=== PATIENT | male | born 1965 | race Caucasian/White ===

== ENCOUNTER 2023-02-21 14:06 | Outpatient (REF) | payer MEDICARE, MEDICAID, SELFPAY ==
--- NOTE | ~2023-02-21 | XR_ITS ---
EXAMINATION: XR LUMBAR SPINE XR SACROILIAC JOINTS CLINICAL INFORMATION: Ankylosing spondylitis COMPARISON: None TECHNIQUE: The lumbar spine is imaged in 5 views: AP, lateral, bilateral oblique, and lateral view coned to lumbosacral junction. The sacroiliac joints are imaged in 4 views. FINDINGS: Lumbar spine: There is normal lumbar segmentation with 5 lumbar vertebrae there is normal lumbar lordosis. Levocurvature mid lumbar spine is present. There is no destructive process, ankylosis, or erosive changes. There are degenerative disc changes greatest at L2-L3 with vacuum disc, endplate sclerosis, and osteophytes. There are also degenerative disc changes at L1-L2 and L3-L4. There is no definite spondylolysis. No spondylolisthesis. Sacroiliac joints: The sacrum shows no fracture or destructive process. There is no SI joint ankylosis or subchondral sclerosis. There are mild SI joint degenerative changes. Pubis unremarkable. There are surgical clips right lower quadrant abdomen. XR/XR sacroiliac joint min 3V IMPRESSION: -Levocurvature lumbar spine with degenerative disc changes, greatest at L2-L3. -Mild degenerative changes SI joints. -No ankylosis SI joints or lumbar spine.
--- NOTE | ~2023-02-21 | XR_ITS ---
EXAMINATION: XR LUMBAR SPINE XR SACROILIAC JOINTS CLINICAL INFORMATION: Ankylosing spondylitis COMPARISON: None TECHNIQUE: The lumbar spine is imaged in 5 views: AP, lateral, bilateral oblique, and lateral view coned to lumbosacral junction. The sacroiliac joints are imaged in 4 views. FINDINGS: Lumbar spine: There is normal lumbar segmentation with 5 lumbar vertebrae there is normal lumbar lordosis. Levocurvature mid lumbar spine is present. There is no destructive process, ankylosis, or erosive changes. There are degenerative disc changes greatest at L2-L3 with vacuum disc, endplate sclerosis, and osteophytes. There are also degenerative disc changes at L1-L2 and L3-L4. There is no definite spondylolysis. No spondylolisthesis. Sacroiliac joints: The sacrum shows no fracture or destructive process. There is no SI joint ankylosis or subchondral sclerosis. There are mild SI joint degenerative changes. Pubis unremarkable. There are surgical clips right lower quadrant abdomen. XR/XR lumbar spine 4V min IMPRESSION: -Levocurvature lumbar spine with degenerative disc changes, greatest at L2-L3. -Mild degenerative changes SI joints. -No ankylosis SI joints or lumbar spine.
[2023-02-21 15:28] LABS: MANUAL DIFF FLAG NO
[2023-02-21 15:36] LABS: Basophils Absolute Auto 0.1 X10*3/uL (0.0-0.2); Basophils Percent Auto 1.6 % (0-2); Eosinophils Absolute Auto 0.6 X10*3/uL (0.0-0.4); Eosinophils Percent Auto 7.8 % (0-4); Hematocrit 42.4 % (42.0-52.0); Hemoglobin 14.5 g/dl (14.0-18.0); Imm Gran Abs Auto 0.02 X10*3/uL (0.00-0.03); Imm Gran Pct Auto 0.3 % (0.0-0.4); Lymphocytes Absolute Auto 2.5 X10*3/uL (1.2-4.9); Lymphocytes Percent Auto 32.8 % (20-40); Mean Corpuscular HGB Conc 34.2 g/dl (31.0-36.0); Mean Corpuscular Hemoglobin 31.3 pg (27.0-33.0); Mean Corpuscular Volume 91.4 fL (80.0-98.0); Mean Platelet Volume 11.7 fL (9.4-12.4); Monocytes Absolute Auto 0.9 X10*3/uL (0.1-1.2); Neutrophils Absolute Auto 3.6 x10*3/uL (2.0-8.3); Neutrophils Percent Auto 46.5 % (45-73); Platelet Count 242 X10*3/uL (160-400); Red Blood Count 4.64 X10*6/uL (4.60-5.80); Red Cell Distribution Width 13.2 % (11.0-16.0); White Blood Count 7.7 X10*3/uL (4.8-10.8)
[2023-02-21 15:55] LABS: Alanine Aminotransferase 17 U/L (0-40); Albumin Level 4.2 g/dL (3.5-5.0); Alkaline Phosphatase 73 U/L (39-117); Anion Gap 13 (12-20); Aspartate Amino Transferase 15 U/L (5-37); Bilirubin Total 0.6 mg/dL (0.0-1.0); Blood Urea Nitrogen 15 mg/dL (9-16); C Reactive Protein < 0.10 mg/dL (< or = 0.50); Calcium 9.4 mg/dL (8.4-10.2); Carbon Dioxide 28 mmol/L (22-29); Chloride 107 mmol/L (96-108); Estimated Glomerular Filt Rate > 60; Glucose Random 94 mg/dL (60-115); Potassium 4.8 mmol/L (3.3-5.1); Sodium 143 mmol/L (135-145); Total Protein 6.6 g/dL (6.5-8.0)
[2023-02-21 16:19] LABS: Erythrocyte Sedimentation Rate 2 MM/HR (0-15)
[2023-02-22 04:03] LABS: HBS Num1 142.71 mIU/mL (0-7.99); HBc Num1 0.19 S/CO (0.00-0.79); HBsAGNum1 0.31 S/CO (0.00-0.99); Hepatitis A Antibody IgM 0.13 Index (0-0.79); Hepatitis B Core Antibody Nonreactive (Nonreactive); Hepatitis B Surface Antigen Negative (Negative); ~HepC Num1 0.18 S/CO (0.00-0.79); ~Hepatitis A Antibody IgM Nonreactive (Nonreactive); ~Hepatitis B Surface Antibody REACTIVE (Nonreactive); ~Hepatitis C Antibody Nonreactive (Nonreactive)
[2023-02-24 23:08] LABS: Prot Elec - Albumin 4.3 g/dL (3.8-4.8); Prot Elec - Alpha1 0.2 g/dL (0.2-0.3); Prot Elec - Alpha2 0.7 g/dL (0.5-0.9); Prot Elec - Beta 1 0.4 g/dL (0.4-0.6); Prot Elec - Beta 2 0.3 g/dL (0.2-0.5); Prot Elec - Gamma 0.8 g/dL (0.8-1.7); Prot Elec - Total Protein 6.6 g/dL (6.1-8.1)
[2023-02-26 10:58] LABS: IgA 125 mg/dL (47-310); IgG 1016 mg/dL (600-1640); IgM 84 mg/dL (50-300)
[2023-02-26 14:11] LABS: TSpotTB Invalid (Negative)
[2023-02-27 20:58] LABS: HLA B27 Positive (Negative)
== END 2023-02-21 14:07 | disposition home or self-care (01) ==
LOC: HO.LAB 14:06
PROVIDERS: Visit Provider Student in an Organized Health Care Education/Training Program
DX: Z11.59 Encounter for screening for other viral diseases (principal); Z11.7 Encounter for testing for latent tuberculosis infection; M45.9 Ankylosing spondylitis of unspecified sites in spine; M47.819 Spondylosis without myelopathy or radiculopathy, site unspecified; Z72.89 Other problems related to lifestyle
CPT/HCPCS: 36415; 72110; 72202; 80053; 82784; 84165; 85025; 85652; 86140; 86334; 86481; 86704; 86706; 86709; 86803; 86812; 87340; 99202

== ENCOUNTER 2023-07-02 10:54 | Outpatient (AMB) | payer MEDICARE, MEDICAID, SELFPAY ==
--- NOTE | 2023-07-02 11:03 | MHC.OFFVIS ---
Intake Vital Signs 07/02/23 11:04 Height 5 ft 10 in Weight 232 lb 9.403 oz BMI 33.4 BP 118/74 Blood Pressure Location Rt brachial Position Sitting Pulse 44 L Pulse Source Pulse Oximeter Pulse Oximetry (%) 96 Oxygen Delivery Method Room Air Intake Visit Reasons: SpA Intake Note: Patient presents for follow up Allergies lamotrigine [From Lamictal] Adverse Reaction (Unknown, Verified 07/02/23 11:06) Rash Medication List - Last Reconciled 07/02/23 by Lucrecia Suarez MD atenolol 50 mg PO DAILY atorvastatin 40 mg PO DAILY baclofen 10 mg PO QID PRN bupropion HCl 200 mg PO BID cholecalciferol (vitamin D3) (D3-2000) 50 mcg PO DAILY citalopram 40 mg PO DAILY etodolac 300 mg PO BID leflunomide 20 mg orally Mon, Wed, Fri; pantoprazole 40 mg PO DAILY quetiapine 50 mg PO BEDTIME HPI HPI Comments History of Present Illness Details 58-year-old male with HLA B27 inflammatory spondyloarthropathy presents for follow-up. Continues to get lower back pain and stiffness, usually worse in the morning associated with 30 minutes of morning stiffness. Pain is also worse with sitting down for long periods of time. Occasionally it radiates to his buttocks and legs. Continues to take Arava 20 mg 3 times a week. Mentions that since stopping the etodolac has been having worsening joint pain. His etodolac 600 XR daily was denied by insurance a few months ago and since then he has not been taking any NSAIDs. I prescribed etodolac 300 mg Twice daily last visit but patient stated that it was not there to cone picker at the pharmacy. States that he has had multiple surgeries for his left shoulder. He has pins and plates in his left shoulder, he is not sure whether those are MRI compatible. Initial history: This is a 57-year-old male with inflammatory spondyloarthropathy who presents as a new patient. 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 States that he has remained stable on leflunomide 20 mg daily 3 days a week. He has also been taking etodolac 600 mg daily XR for many years and has remained relatively stable on this regimen. States that 6 weeks ago his insurance denied Etodolac in his back pain has been worse. States that his back pain is worse with any activity. Occasionally back pain would wake him up. He does not have significant morning stiffness. Denies any peripheral joint complaints. No history suggestive of uveitis. Never had a colonoscopy but denies any bowel complaints or blood in the stool. No known family history of autoimmune rheumatic disease Per Dr. Gutierrez's notes: Clinical diagnosis of spondyloarthropathy was made he years ago around 2004 on the basis of sacroiliac pain, inflammatory symptoms, NSAID response.? No radiographic sacroiliitis. In the remote past he was tried on sulfasalazine and methotrexate.? He ended up on leflunomide and has remained on this medication since at least 2006.? He has tried a couple of times to stop but there was a substantial flare in the symptoms.? He is also on etodolac [facility] Medical History Anemia Carpal tunnel syndrome Encounter for testing for latent tuberculosis infection Low back pain Major depression, melancholic type Primary fibromyalgia syndrome Screening for viral disease Sleep apnea Surgical History H/O hand surgery H/O left knee surgery History of varicocele Hx of appendectomy S/P arthroscopic surgery of right knee S/P left rotator cuff repair Family History Mother Arthritis Father Arthritis Social History Household Members: Spouse and Family Alcohol intake: current Alcohol intake frequency: does not drink Patient Tobacco Use Status: Former Tobacco user Quit Date: 2004 Current occupational status: disabled 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 of Systems [facility] [place] back pain Physical Exam Vital Signs: Last Vital Signs Pulse 44 L 07/02/23 11:04 BP 118/74 07/02/23 11:04 Pulse Ox 96 07/02/23 11:04 Oxygen Delivery Method Room Air 07/02/23 11:04 BMI result Body Mass Index 33.4 Const General: cooperative, healthy appearing and comfortable Nutritional Appearance: obese Orientation/consciousness: patient oriented x3 Limitations: no limitations HEENT Head: Yes normocephalic and Yes atraumatic Resp Effort & Inspection: normal respiratory effort and able to speak in complete sentences Auscultation: clear to auscultation bilaterally Cardio Rate: regular rate GI Inspection: No distended Palpation (GI): Soft to palpation and nontender Neuro General: patient oriented x3 Extrem Other: No active peripheral synovitis Magda test 10-16 cm Straight leg raise test positive bilaterally Equivocal Raheem's test bilaterally Results Reviewed Results Reviewed: Labs 05/2022? CMP unremarkable? ESR/CRP normal? CBC unremarkable Labs 08/2022 CRP/ESR normal CBC/CMP unremarkable Assessment & Plan Assessment & Plan (1) Seronegative spondyloarthropathy: Comment: +HLA b27 dx 2004 SSZ & MTX unknown whether failed or couldn't be tolerated on leflunomide since 2006 Code(s): M47.819 - Spondylosis without myelopathy or radiculopathy, site unspecified Plan: This is a 57-year-old male with HLA B27 positive inflammatory spondyloarthropathy diagnosis based on SI joint pain and significant response to NSAIDs. No sacroiliitis on plain films in the past. Was on sulfasalazine and methotrexate in the past he ended up on sulfasalazine since 2006. His symptoms have been fairly stable on leflunomide 20 mg 3 days a week and a stable dose of NSAIDs. He has been taking etodolac 600 mg daily for many years with good response. Narcotics were discontinued. A few months ago ago Etodolac was denied by insurance. I prescribed etodolac 300 mg Twice daily, but patient states that they were not available for cone picker at the pharmacy. I represcribed etodolac 300 mg Twice daily and ask patient to follow up, let us know if it goes through. Will consider switching to meloxicam if it total lack is denied. Try on past patches Continue leflunomide 20 mg 3 days a week. Check labs before next visit in 4 months Plan I spent 27 minutes reviewing patient's chart, evaluating patient, ordering diagnostic workup, counseling patient and documenting in the chart Orders: Orders Comprehensive Met. Panel 4 Months M47.819 - Spondylosis without myelopathy or radiculopathy, site unspecified C Reactive Protein 4 Months M47.819 - Spondylosis without myelopathy or radiculopathy, site unspecified Complete Blood Count Auto Diff 4 Months M47.819 - Spondylosis without myelopathy or radiculopathy, site unspecified Erythrocyte Sedimentation Rate 4 Months M47.819 - Spondylosis without myelopathy or radiculopathy, site unspecified Medications: Refilled etodolac 300 mg PO BID 180 caps 0RF Coding Level of Care Code Est Pt Level 4 (52971) Diagnoses Seronegative spondyloarthropathy M47.810
[2023-07-02 11:04] VITALS: BP 118/74; PULSE 44; O2SAT 96; BMI 33.4
== END 2023-07-02 11:38 | disposition home or self-care (01) ==
PROVIDERS: PCP Family Medicine; Visit Provider Student in an Organized Health Care Education/Training Program
DX: M47.819 Spondylosis without myelopathy or radiculopathy, site unspecified (principal)
CPT/HCPCS: 99214

== ENCOUNTER → 2023-07-02 10:54 | Outpatient (BNVA) | payer MEDICARE, MEDICAID, SELFPAY | PROVIDERS: Visit Provider Student in an Organized Health Care Education/Training Program | DX: M47.819 Spondylosis without myelopathy or radiculopathy, site unspecified (principal); Z79.899 Other long term (current) drug therapy | CPT/HCPCS: 99212 ==

== ENCOUNTER 2023-10-31 10:46 | Outpatient (REF) | payer MEDICARE, MEDICAID, SELFPAY ==
[2023-10-31 11:00] LABS: MANUAL DIFF FLAG NO
[2023-10-31 11:19] LABS: Basophils Absolute Auto 0.1 X10*3/uL (0.0-0.2); Basophils Percent Auto 1.5 % (0-2); Eosinophils Absolute Auto 0.6 X10*3/uL (0.0-0.4); Eosinophils Percent Auto 7.2 % (0-4); Hematocrit 41.5 % (42.0-52.0); Hemoglobin 14.1 g/dl (14.0-18.0); Imm Gran Abs Auto 0.02 X10*3/uL (0.00-0.03); Imm Gran Pct Auto 0.2 % (0.0-0.4); Lymphocytes Absolute Auto 2.5 X10*3/uL (1.2-4.9); Lymphocytes Percent Auto 29.7 % (20-40); Mean Corpuscular Hemoglobin 30.9 pg (27.0-33.0); Mean Corpuscular Volume 90.8 fL (80.0-98.0); Mean Platelet Volume 11.4 fL (9.4-12.4); Monocytes Percent Auto 11.3 % (2-11); Neutrophils Absolute Auto 4.2 x10*3/uL (2.0-8.3); Neutrophils Percent Auto 50.1 % (45-73); Platelet Count 259 X10*3/uL (160-400); Red Blood Count 4.57 X10*6/uL (4.60-5.80); Red Cell Distribution Width 13.2 % (11.0-16.0); White Blood Count 8.4 X10*3/uL (4.8-10.8)
[2023-10-31 11:43] LABS: Alanine Aminotransferase 18 U/L (0-40); Albumin Level 4.1 g/dL (3.5-5.0); Alkaline Phosphatase 73 U/L (39-117); Anion Gap 12 (12-20); Aspartate Amino Transferase 16 U/L (5-37); Bilirubin Total 0.4 mg/dL (0.0-1.0); Blood Urea Nitrogen 18 mg/dL (9-16); C Reactive Protein < 0.10 mg/dL (< or = 0.50); Carbon Dioxide 26 mmol/L (22-29); Chloride 104 mmol/L (96-108); Estimated Glomerular Filt Rate > 60; Glucose Random 107 mg/dL (60-115); Potassium 3.8 mmol/L (3.3-5.1); Sodium 138 mmol/L (135-145); Total Protein 6.7 g/dL (6.5-8.0)
[2023-10-31 11:59] LABS: Erythrocyte Sedimentation Rate 2 MM/HR (0-15)
== END 2023-10-31 10:47 | disposition home or self-care (01) ==
LOC: HO.LAB 10:46
PROVIDERS: PCP Nurse Practitioner Family; Visit Provider Student in an Organized Health Care Education/Training Program
DX: M47.819 Spondylosis without myelopathy or radiculopathy, site unspecified (principal)
CPT/HCPCS: 36415; 80053; 85025; 85652; 86140

== ENCOUNTER 2023-11-04 11:19 | Outpatient (AMB) | payer MEDICARE, MEDICAID, SELFPAY ==
[2023-11-04 11:25] VITALS: BP 116/68; PULSE 48; BMI 34.1
--- NOTE | 2023-11-04 11:25 | A.OFFVIS_ITS ---
Intake Vital Signs 11/04/23 11:25 Height 5 ft 10 in Weight 237 lb 10.533 oz BMI 34.1 BP 116/68 Blood Pressure Location Rt brachial Position Sitting Pulse 48 L Pulse Source Pulse Oximeter Intake Visit Reasons: Intake Note: Pt last seen 07/02/23, presents today for follow up and test results. Hedge Fund Trader Required: No Accompanied by: Self / Same As Patient Allergies lamotrigine [From Lamictal] Adverse Reaction (Unknown, Verified 11/04/23 11:27) Rash Medication List - Last Reconciled 11/04/23 by Lucrecia Suarez MD atenolol 50 mg PO DAILY atorvastatin 40 mg PO DAILY baclofen 10 mg PO QID PRN bupropion HCl 200 mg PO BID cholecalciferol (vitamin D3) (D3-2000) 50 mcg PO DAILY citalopram 40 mg PO DAILY etodolac 300 mg PO BID leflunomide 20 mg PO 3XW pantoprazole 40 mg PO DAILY quetiapine 50 mg PO BEDTIME HPI HPI Comments History of Present Illness Details 58-year-old male with HLA B27 inflammato ry spondyloarthropathy presents for follow-up. On leflunomide 3 days a week and etodolac 300 mg Twice daily. States that in total like 300 mg Twice daily is as effective as 600 mg XR. W orks fairly well. Continues to get lower back pain and stiffness, usually worse in the morning associated with 30 minutes of morning stiffness. Pain is also worse with sitting down for long periods of time. Worse with activity. Occasionally it radiates to his buttocks and legs. More recently it has been worse on the left side Initial history: This is a 57-year-old male with inflammatory spon dyloarthropathy who presents as a new patient. 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 States that he has remained stable on leflunomide 20 mg daily 3 days a week. He has also been taking etodolac 600 mg daily XR for many years and has remained relatively stable on this regimen. States that 6 weeks ago his insurance denied Etodolac in his back pain has been worse. States that his back pain is worse with any activity. Occasionally back pain would wake him up. He does not have significant morning stiffness. Denies any peripheral joint complaints. No history suggestive of uveitis. Never had a colonoscopy but denies any bowel complaints or blood in the stool. No known family history of autoimmune rheumatic disease Per Dr. Gutierrez's notes: Clinical diagnosis of spondyloarthropathy was made he years ago around 2004 on the basis of sacroiliac pain, inflammatory symptoms, NSAID response.? No radiographic sacroiliitis. In the remote past he was tried on sulfasalazine and methotrexate.? He ended up on leflunomide and has remained on this medication since at least 2006.? He has tried a couple of times to stop but there was a substantial flare in the symptoms.? He is also on etodolac [facility] Medical History Sleep apnea Primary fibromyalgia syndrome Low back pain Carpal tunnel syndrome Major depression, melancholic type Anemia Surgical History History of varicocele H/O hand surgery Hx of appendectomy H/O left knee surgery S/P left rotator cuff repair S/P arthroscopic surgery of right knee Family History Mother Arthritis Father Arthritis Social History Household Members: Spouse and Family Alcohol intake: current Alcohol intake frequency: does not drink Patient Tobacco Use Status: Former Tobacco user Quit Date: 2004 Current occupational status: disabled 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[facility] [place] Reports back pain Physical Exam Vital Signs: Last Vital Signs Pulse 48 L 11/04/23 11:25 BP 116/68 11/04/23 11:25 BMI result Body Mass Index 34.1 Const General: cooperative, healthy appearing and comfortable Nutritional Appearance: obese Orientation/consciousness: patient oriented x3 Limitations: no limitations HEENT Head: Yes normocephalic and Yes atraumatic Resp Effort & Inspection: normal respiratory effort and able to speak in complete sentences Auscultation: clear to auscultation bilaterally Cardio Rate: regular rate GI Inspection: No distended Palpation (GI): Soft to palpation and nontender Neuro General: patient oriented x3 Extrem Other: No active peripheral synovitis Magda test 10-16 cm Straight leg raise test positive bilaterally Equivocal Raheem's test bilaterally Results Reviewed Results Reviewed: Labs 05/2022? CMP unremarkable? ESR/CRP normal? CBC unremarkable Labs 08/2022 CRP/ESR normal CBC/CMP unremarkable Assessment & Plan Assessment & Plan (1) Seronegative spondyloarthropathy: Comment: +HLA b27 dx 2004 SSZ & MTX unknown whether failed or couldn't be tolerated on leflunomide since 2006 Code(s): M47.819 - Spondylosis without myelopathy or radiculopathy, site unspecified Plan: This is a 57-year-old male with HLA B27 positive inflammatory spondyloarthropathy diagnosis based on SI joint pain and significant response to NSAIDs. No sacroiliitis on plain films in the past. Was on sulfasalazine and methotrexate in the past he ended up on leflunomide since 2006. His symptoms have been fairly stable on leflunomide 20 mg 3 days a week and a stable dose of NSAIDs. He has been taking etodolac 600 mg daily for many years with good response. Narcotics were discontinued. A few months ago ago Etodolac XR 600 mg was denied by insurance. Etodolac 300 mg Twice daily was approved. According to patient it is similar to the 600 mg XR. Upon evaluation I do not believe patient's symptoms are inflammatory in nature. I believe they are degenerative. Advised patient to try using OTC Salonpas patches on affected areas Continue leflunomide 20 mg 3 days a week. Continue Etodolac 300 mg bid. Check labs before next visit in 6 months (2) Degenerative lumbar disc: Code(s): M51.36 - Other intervertebral disc degeneration, lumbar region Plan: Referred to Pain management Plan I spent 27 minutes reviewing patient's chart, evaluating patient, ordering diagnostic workup, counseling patient and documenting in the chart Orders: Orders Complete Blood Count Auto Diff 6 Months M4.819 - Spondylosis without myelopathy or radiculopathy, site unspecified Comprehensive Met. Panel 6 Months M47.819 - Spondylosis without myelopathy or radiculopathy, site unspecified C Reactive Protein 6 Months M47.819 - Spondylosis without myelopathy or radiculopathy, site unspecified Erythrocyte Sedimentation Rate 6 Months M47.819 - Spondylosis without myelopathy or radiculopathy, site unspecified Referrals Pain Management Referral M51.36 - Other intervertebral disc degeneration, lumba r region Coding Level of Care Code Est Pt Level 4 (11233) Diagnoses Seronegative spondyloarthropathy M47.819 Degenerative lumbar disc M51.36
== END 2023-11-04 11:50 | disposition home or self-care (01) ==
PROVIDERS: PCP Family Medicine; Visit Provider Student in an Organized Health Care Education/Training Program
DX: M47.819 Spondylosis without myelopathy or radiculopathy, site unspecified (principal); M51.36 Other intervertebral disc degeneration, lumbar region
CPT/HCPCS: 99214

== ENCOUNTER → 2023-11-04 11:19 | Outpatient (BNVA) | payer MEDICARE, MEDICAID, SELFPAY | PROVIDERS: PCP Family Medicine; Visit Provider Student in an Organized Health Care Education/Training Program | DX: M47.819 Spondylosis without myelopathy or radiculopathy, site unspecified (principal); M51.36 Other intervertebral disc degeneration, lumbar region | CPT/HCPCS: 99212 ==

== ENCOUNTER 2023-11-06 09:50 | Outpatient (AMB) | payer MEDICARE, MEDICAID, SELFPAY ==
--- NOTE | 2023-11-06 09:57 | A.OFFVIS_ITS ---
Intake Vital Signs 11/06/23 10:05 Height 5 ft 10 in Weight 236 lb BMI 33.9 BP 123/76 Blood Pressure Location Lt brachial Position Sitting Respiration 16 Pulse 44 L Pulse Source Pulse Oximeter Pulse Oximetry (%) 94 Oxygen Delivery Method Room Air Intake Visit Reasons: intervertebral disc degeneration, lumbar region Allergies lamotrigine [From Lamictal] Adverse Reaction (Unknown, Verified 11/04/23 11:27) Rash HPI HPI Comments History of Present Illness Details Miguel is a very pleasant 58 year old male who presented to the office today for evaluation and management of his chronic lower back pain. Patient was referred to our office from Rheumatology. Patient reports that he has been suffering with pain to his lower back since 1996. Patient states in 1995 he contracted Coxsackie virus which left him without the use of his legs for 1 week. After recovering from that the pain in his lower back persisted. He has tried physical therapy in the past without relief, he continues with home exercise program to maintain range of motion but states the pain persists. He is currently taking nonsteroidal anti-inflammatory medication and baclofen prescribed by Rheumatology with some improvement of the pain, he has been on these medications for several years. He does take Tylenol as needed for severe pain. He has tried lidocaine patches but they do not provide sustained relief. He has utilized a TENs unit in the past that worsened his pain. Patient has undergone injections a long time ago and states that only made the pain worse. He has never tried manual manipulation by chiropractor, acupuncture or massage. Patient denies current radiation of the pain down either leg, he denies lower extremity numbness tingling or weakness. 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 Patient denies red flag symptoms including new loss of bowel, bladder or saddle anesthesia. Pain today is rated as a 7/10, constant and worse during the day. In terms of muscle damage condition is described as aching, shooting. Pain is negatively impacting patient's enjoyment of life, general activity, mood, recreational activities, relationships with people, sleep and walking. [facility] Medical History Sleep apnea Primary fibromyalgia syndrome Low back pain Carpal tunnel syndrome Major depression, melancholic type Anemia Surgical History History of varicocele H/O hand surgery Hx of appendectomy H/O left knee surgery S/P left rotator cuff repair S/P arthroscopic surgery of right knee Family History Mother Arthritis Father Arthritis Social History Household Members: Spouse and Family Alcohol intake: current Alcohol intake frequency: does not drink Patient Tobacco Use Status: Former Tobacco user Quit Date: 2004 Current occupational status: disabled 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 Answers questions appropriately. Fully engaged in examination. Skin: warm, dry, intact HEENT: Normocephalic. Hearing intact. Cardiac: External chest normal in appearance. Respiratory: No cough, audible wheezing or stridor. Abdomen: without gross distension. MS: No obvious swelling or deformities. Able to stand on bilateral tiptoes and bilateral heels.? Able to transition from sit to stand unassisted. Ambulates with bilaterally normal heel strike and toe off BLE strength 5/5 SLR with and without dorsiflexion negative bilaterally Facet loading positive bilaterally Tender to palpation over midline lumbar vertebrae and lumbar paraspinal muscles Nontender PSIS bilaterally ROM intact Neurological: Oriented to person, place, time and situation. Thought process intact. No gait abnormalities appreciated. Psychiatric: Appropriate mood and affect. Good judgment and insight. Results Reviewed Results Reviewed: 02/21/2023 XR Lumbar Spine, XR sacroiliac joints FINDINGS: Lumbar spine: There is normal lumbar segmentation with 5 lumbar vertebrae there is normal lumbar lordosis. Levocurvature mid lumbar spine is present. There is no destructive process, ankylosis, or erosive changes. There are degenerative disc changes greatest at L2-L3 with vacuum disc, endplate sclerosis, and osteophytes. There are also degenerative disc changes at L1-L2 and L3-L4. There is no definite spondylolysis. No spondylolisthesis. Sacroiliac joints: The sacrum shows no fracture or destructive process. There is no SI joint ankylosis or subchondral sclerosis. There are mild SI joint degenerative changes. Pubis unremarkable. There are surgical clips right lower quadrant abdomen. IMPRESSION: -Levocurvature lumbar spine with degenerative disc changes, greatest at L2-L3. -Mild degenerative changes SI joints. -No ankylosis SI joints or lumbar spine. Assessment & Plan Assessment & Plan (1) Seronegative spondyloarthropathy: Comment: +HLA b27 dx 2004 SSZ & MTX unknown whether failed or couldn't be tolerated on leflunomide since 2006 Code(s): M47.819 - Spondylosis without myelopathy or radiculopathy, site unspecified (2) Lumbar facet arthropathy: Code(s): M47.816 - Spondylosis without myelopathy or radiculopathy, lumbar region Plan Miguel is a very pleasant 58 year old male who presented to the office today for evaluation and management of his chronic lower back pain. History, physical exam and provocative testing consistent with axial back pain related to lumbar facet arthropathy. C/W NSAIDs and muscle relaxers as prescribed Offered TENS unit and lidocaine patches, patient declined Patient has failed conservative treatment including physical therapy, home exercise program, nonsteroidal anti-inflammatory medications, muscle relaxers, TENS unit and lidocaine patches. Discussed options for treatment including diagnostic interventional testing, steroid injections, peripheral nerve stimulation with Sprint, RFA and more permanent neuromodulation. Informational pamphlets provided. Will schedule for fluoroscopy guided diagnostic bilateral L3-L4 DR L5 MBBs with local anesthetic. Patient will discuss Sprint VS RFA with family and review pamphlets prior to follow up appt, plan currently for bilateral L3 MB Sprint PNS if patient has positive results of diagnostic injections. If negative results of MBBs consider MRI LS without contrast. All questions and concerns were answered during the visit today, patient agrees with the plan. Follow up after injections, sooner if needed. Coding Level of Care Code New Pt Level 4 (57547) Diagnoses Seronegative spondyloarthropathy M47.819 Lumbar facet arthropathy M47.816
[2023-11-06 10:05] VITALS: BP 123/76; PULSE 44; RESP 16; O2SAT 94; BMI 33.9
== END 2023-11-06 11:04 | disposition home or self-care (01) ==
PROVIDERS: PCP Family Medicine; Referring Provider Student in an Organized Health Care Education/Training Program; Visit Provider Registered Nurse Emergency
DX: M47.819 Spondylosis without myelopathy or radiculopathy, site unspecified (principal); M47.816 Spondylosis without myelopathy or radiculopathy, lumbar region
CPT/HCPCS: 99204

== ENCOUNTER → 2023-11-06 09:50 | Outpatient (BNVA) | payer MEDICARE, MEDICAID, SELFPAY | PROVIDERS: PCP Family Medicine; Referring Provider Student in an Organized Health Care Education/Training Program; Visit Provider Registered Nurse Emergency | DX: M47.819 Spondylosis without myelopathy or radiculopathy, site unspecified (principal); M47.816 Spondylosis without myelopathy or radiculopathy, lumbar region | CPT/HCPCS: 99202 ==

== ENCOUNTER 2024-04-29 10:22 | Outpatient (AMB) | payer MEDICARE, MEDICAID, SELFPAY ==
--- NOTE | 2024-04-29 10:43 | A.OFFVIS_ITS ---
Vital Signs 04/29/24 10:50 Height 5 ft 10 in Weight 237 lb 3.478 oz BMI 34.0 BP 132/70 Blood Pressure Location Rt brachial Position Sitting Pulse 56 Pulse Source Pulse Oximeter Pulse Oximetry (%) 96 Oxygen Delivery Method Room Air Intake Visit Reasons: Intake Note: Patient last seen 11/04/23, presents today for follow up. Repots severe joint pain since last visit. Was seen at [facility]. Following with [facility] possible left shoulder replacement. Pediatric Dentist Required: No Accompanied by: Self / Same As Patient Allergies lamotrigine [From Lamictal] Adverse Reaction (Unknown, Verified 04/29/24 10:51) Rash Medication List - Last Reconciled 04/29/24 by Lucrecia Suarez MD atenolol 50 mg PO DAILY atorvastatin 40 mg PO DAILY baclofen 10 mg PO QID PRN bupropion HCl SR 200 mg PO BID cholecalciferol (vitamin D3) (D3-2000) 50 mcg PO DAILY citalopram 40 mg PO DAILY etodolac 300 mg PO BID gabapentin 100 mg PO BID leflunomide 20 mg PO 3XW pantoprazole 40 mg PO DAILY quetiapine 50 mg PO BEDTIME HPI Comments Details: 59-year-old male with HLA B27 inflammatory spondyloarthropathy presents for [facility]-. On leflunomide 3 days a week and etodolac 300 mg Twice daily. He continues to have chronic back pain, usually worse with activity. Back pain is worst at night. It wakes up from sleep 2-3 times a week. He was evaluated by pain management and was diagnosed with facet arthritis. Different treatment options were discussed such as injections, sprint trials, RFA, patient stated that he does not have anyone to drive him back home from dose procedures toe he has not been able to pursue it. Continues to have shoulder pain. He was evaluated by an orthopedist and states that he might need left shoulder replacement Initial history: This is a 57-year-old male with inflammatory spondyloarthropathy who presents as a new patient. 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 States that he has remained stable on leflunomide 20 mg daily 3 days a week. He has also been taking etodolac 600 mg daily XR for many years and has remained relatively stable on this regimen. States that 6 weeks ago his insurance denied Etodolac in his back pain has been worse. States that his back pain is worse with any activity. Occasionally back pain would wake him up. He does not have significant morning stiffness. Denies any peripheral joint complaints. No history suggestive of uveitis. Never had a colonoscopy but denies any bowel complaints or blood in the stool. No known family history of autoimmune rheumatic disease Per Dr. Gutierrez's notes: Clinical diagnosis of spondyloarthropathy was made he years ago around 2004 on the basis of sacroiliac pain, inflammatory symptoms, NSAID response.? No radiographic sacroiliitis. In the remote past he was tried on sulfasalazine and methotrexate.? He ended up on leflunomide and has remained on this medication since at least 2006.? He has tried a couple of times to stop but there was a substantial flare in the symptoms.? He is also on etodolac [facility] Medical History Sleep apnea Primary fibromyalgia syndrome Low back pain Carpal tunnel syndrome Major depression, melancholic type Anemia Surgical History History of varicocele H/O hand surgery Hx of appendectomy H/O left knee surgery S/P left rotator cuff repair S/P arthroscopic surgery of right knee Family History Mother Arthritis Father Arthritis Social History Household Members: Spouse and Family Alcohol intake: current Alcohol intake frequency: does not drink Patient Tobacco Use Status: Former Tobacco user Current occupational status: disabled 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 of Systems [facility] [place] Reports back pain and Reports arthralgias Physical Exam Const General: cooperative, healthy appearing and comfortable Nutritional Appearance: obese Orientation/consciousness: patient oriented x3 Limitations: no limitations HEENT Head: Yes normocephalic and Yes atraumatic Resp Effort & Inspection: normal respiratory effort and able to speak in complete sentences Auscultation: clear to auscultation bilaterally Cardio Rate: regular rate GI Inspection: No distended Palpation (GI): Soft to palpation and nontender Neuro General: patient oriented x3 Extrem Other: No active peripheral synovitis Magda test 10-14.5 cm Straight leg raise test positive bilaterally Equivocal Raheem's test bilaterally Bilateral lumbar paraspinal muscle tenderness Results Reviewed Results Reviewed: 02/21/2023 XR Lumbar Spine, XR sacroiliac joints FINDINGS: Lumbar spine: There is normal lumbar segmentation with 5 lumbar vertebrae there is normal lumbar lordosis. Levocurvature mid lumbar spine is present. There is no destructive process, ankylosis, or erosive changes. There are degenerative disc changes greatest at L2-L3 with vacuum disc, endplate sclerosis, and osteophytes. There are also degenerative disc changes at L1-L2 and L3-L4. There is no definite spondylolysis. No spondylolisthesis. Sacroiliac joints: The sacrum shows no fracture or destructive process. There is no SI joint ankylosis or subchondral sclerosis. There are mild SI joint degenerative changes. Pubis unremarkable. There are surgical clips right lower quadrant abdomen. IMPRESSION: -Levocurvature lumbar spine with degenerative disc changes, greatest at L2-L3. -Mild degenerative changes SI joints. -No ankylosis SI joints or lumbar spine. 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 On leflunomide 20 mg 3 times a week and etodolac 300 mg Twice daily. Continues to have chronic low back pain, continues to have nocturnal symptoms. Continues to have active disease. Will need to advance therapy. Discussed biologic DMARDs. Discussed risks and benefits of TNF inhibitors. Patient agreed to proceed. Will start prior authorization for Enbrel Continue leflunomide 20 mg 3 days a week.? Continue Etodolac 300 mg bid. Check labs today Follow-up in 3 months (2) High risk medication use: Code(s): Z79.899 - Other intermodal customer service (current) drug therapy Category: Medical Plan: Discussed risks of TNF inhibitor such as increased risk of infection, increased risk of malignancy, injection site reactions and others. advised patient to call the office if he develops an infection. 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
[2024-04-29 10:50] VITALS: BP 132/70; PULSE 56; O2SAT 96; BMI 34.0
== END 2024-04-29 11:02 | disposition home or self-care (01) ==
PROVIDERS: PCP Family Medicine; Visit Provider Student in an Organized Health Care Education/Training Program
DX: M45.A Non-radiographic axial spondyloarthritis (principal); Z79.899 Other long term (current) drug therapy
CPT/HCPCS: 99214

== ENCOUNTER 2024-04-29 11:05 | Outpatient (REF) | payer MEDICARE, MEDICAID, SELFPAY ==
[2024-04-29 13:10] LABS: MANUAL DIFF FLAG NO
[2024-04-29 13:39] LABS: Basophils Absolute Auto 0.1 X10*3/uL (0.0-0.2); Basophils Percent Auto 1.8 % (0-2); Eosinophils Absolute Auto 0.4 X10*3/uL (0.0-0.4); Eosinophils Percent Auto 5.4 % (0-4); Hemoglobin 14.4 g/dl (14.0-18.0); Imm Gran Abs Auto 0.03 X10*3/uL (0.00-0.03); Imm Gran Pct Auto 0.4 % (0.0-0.4); Lymphocytes Absolute Auto 2.1 X10*3/uL (1.2-4.9); Lymphocytes Percent Auto 30.9 % (20-40); Mean Corpuscular HGB Conc 34.3 g/dl (31.0-36.0); Mean Corpuscular Hemoglobin 31.3 pg (27.0-33.0); Mean Corpuscular Volume 91.3 fL (80.0-98.0); Mean Platelet Volume 11.6 fL (9.4-12.4); Monocytes Absolute Auto 0.7 X10*3/uL (0.1-1.2); Monocytes Percent Auto 10.7 % (2-11); Neutrophils Absolute Auto 3.5 x10*3/uL (2.0-8.3); Neutrophils Percent Auto 50.8 % (45-73); Platelet Count 261 X10*3/uL (160-400); Red Cell Distribution Width 13.7 % (11.0-16.0); White Blood Count 6.8 X10*3/uL (4.8-10.8)
[2024-04-29 13:56] LABS: Alanine Aminotransferase 26 U/L (0-40); Alkaline Phosphatase 61 U/L (39-117); Anion Gap 11 (12-20); Aspartate Amino Transferase 19 U/L (5-37); Bilirubin Total 0.7 mg/dL (0.0-1.0); Blood Urea Nitrogen 14 mg/dL (9-16); C Reactive Protein 0.16 mg/dL (< or = 0.50); Calcium 9.1 mg/dL (8.4-10.2); Carbon Dioxide 28 mmol/L (22-29); Chloride 105 mmol/L (96-108); Estimated Glomerular Filt Rate > 60; Glucose Random 109 mg/dL (60-115); Potassium 4.1 mmol/L (3.3-5.1); Sodium 140 mmol/L (135-145); Total Protein 6.7 g/dL (6.5-8.0)
[2024-04-29 14:34] LABS: Erythrocyte Sedimentation Rate 2 MM/HR (0-15)
[2024-05-02 10:13] LABS: TS Negative Control Passed; TS Panel A 0; TS Panel B 0; TS Positive Control Passed; TSpotTB Negative (Negative)
== END 2024-04-29 11:06 | disposition home or self-care (01) ==
LOC: HO.10HDL 11:05
PROVIDERS: Visit Provider Student in an Organized Health Care Education/Training Program
DX: Z11.7 Encounter for testing for latent tuberculosis infection (principal); M47.819 Spondylosis without myelopathy or radiculopathy, site unspecified; M45.A Non-radiographic axial spondyloarthritis; Z79.899 Other long term (current) drug therapy
CPT/HCPCS: 36415; 80053; 85025; 85652; 86140; 86481; 99212

== ENCOUNTER 2024-08-04 09:44 | Outpatient (AMB) | payer MEDICARE, MEDICAID, SELFPAY ==
--- NOTE | 2024-08-04 10:03 | A.OFFVIS_ITS ---
Vital Signs 08/04/24 10:06 Height 5 ft 10 in Weight 235 lb 3.732 oz BMI 33.7 BP 116/62 Blood Pressure Location Rt brachial Position Sitting Pulse 47 L Pulse Source Pulse Oximeter Pulse Oximetry (%) 93 Oxygen Delivery Method Room Air Intake Visit Reasons: Intake Note: Patient presents for . Allergies lamotrigine [From Lamictal] Adverse Reaction (Unknown, Verified 08/04/24 10:05) Rash Medication List - Last Reconciled 08/04/24 by Lucrecia Suarez MD atenolol 50 mg PO DAILY atorvastatin 40 mg PO DAILY baclofen 10 mg PO QID PRN bupropion HCl SR 200 mg PO BID cholecalciferol (vitamin D3) (D3-2000) 50 mcg PO DAILY citalopram 40 mg PO DAILY Enbrel SureClick (etanercept) 50 mg subcut QWEEK NS etodolac 300 mg PO BID gabapentin 100 mg PO BID leflunomide 20 mg PO 3XW pantoprazole 40 mg PO DAILY quetiapine 50 mg PO BEDTIME HPI Comments Details: 59-year-old male with HLA B27 inflammatory spondyloarthropathy presents for [facility]-. Started Enbrel after last visit 3 months ago, he remains on On leflunomide 3 days a week and etodolac 300 mg Twice daily. He states that he feels Enbrel is helping him somewhat. 30% improvement in his lower back pain. It lasts 3-4 days. Has noticed some redness of his skin in the injection site. It is not painful or itchy. He also had left shoulder replacement revision. He is wearing a sling and will be starting PT in 3 weeks Initial history: This is a 57-year-old male with inflammatory spondyloarthropathy who presents as a new patient. 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 States that he has remained stable on leflunomide 20 mg daily 3 days a week. He has also been taking etodolac 600 mg daily XR for many years and has remained relatively stable on this regimen. States that 6 weeks ago his insurance denied Etodolac in his back pain has been worse. States that his back pain is worse with any activity. Occasionally back pain would wake him up. He does not have significant morning stiffness. Denies any peripheral joint complaints. No history suggestive of uveitis. Never had a colonoscopy but denies any bowel complaints or blood in the stool. No known family history of autoimmune rheumatic disease Per Dr. Gutierrez's notes: Clinical diagnosis of spondyloarthropathy was made he years ago around 2004 on the basis of sacroiliac pain, inflammatory symptoms, NSAID response.? No radiographic sacroiliitis. In the remote past he was tried on sulfasalazine and methotrexate.? He ended up on leflunomide and has remained on this medication since at least 2006.? He has tried a couple of times to stop but there was a substantial flare in the symptoms.? He is also on etodolac [facility] Medical History Sleep apnea Primary fibromyalgia syndrome Low back pain Carpal tunnel syndrome Major depression, melancholic type Anemia Surgical History History of shoulder surgery History of varicocele H/O hand surgery Hx of appendectomy H/O left knee surgery S/P left rotator cuff repair S/P arthroscopic surgery of right knee Family History Mother Arthritis Father Arthritis Social History Household Members: Spouse and Family Alcohol intake: current Alcohol intake frequency: does not drink Patient Tobacco Use Status: Former Tobacco user Current occupational status: disabled 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 [facility] [place] Reports back pain and Reports arthralgias Physical Exam Vital Signs: Last Vital Signs Pulse 47 L 08/04/24 10:06 BP 116/62 08/04/24 10:06 Pulse Ox 93 08/04/24 10:06 Oxygen Delivery Method Room Air 08/04/24 10:06 BMI result Body Mass Index 33.7 Const General: cooperative, healthy appearing and comfortable Nutritional Appearance: obese Orientation/consciousness: patient oriented x3 Limitations: no limitations HEENT Head: Yes normocephalic and Yes atraumatic Resp Effort & Inspection: normal respiratory effort and able to speak in complete sentences GI Inspection: No distended Palpation (GI): Soft to palpation and nontender Neuro General: patient oriented x3 Extrem Other: No active peripheral synovitis Magda test 10-14.5 cm Straight leg raise test negative bilaterally Equivocal Raheem's test bilaterally Bilateral lumbar paraspinal muscle tenderness Results Reviewed Results Reviewed: 02/21/2023 XR Lumbar Spine, XR sacroiliac joints FINDINGS: Lumbar spine: There is normal lumbar segmentation with 5 lumbar vertebrae there is normal lumbar lordosis. Levocurvature mid lumbar spine is present. There is no destructive process, ankylosis, or erosive changes. There are degenerative disc changes greatest at L2-L3 with vacuum disc, endplate sclerosis, and osteophytes. There are also degenerative disc changes at L1-L2 and L3-L4. There is no definite spondylolysis. No spondylolisthesis. Sacroiliac joints: The sacrum shows no fracture or destructive process. There is no SI joint ankylosis or subchondral sclerosis. There are mild SI joint degenerative changes. Pubis unremarkable. There are surgical clips right lower quadrant abdomen. IMPRESSION: -Levocurvature lumbar spine with degenerative disc changes, greatest at L2-L3. -Mild degenerative changes SI joints. -No ankylosis SI joints or lumbar spine. 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 On Enbrel 50 mg once weekly, leflunomide 20 mg 3 times a week and etodolac 300 mg Twice daily. States he has noticed some improvement since Enbrel was added. At least 30% improvement in his lower back pain. Continue current meds, but or etodolac to 300 mg once daily and take the other tablet as needed. Advised patient to ice the injection site 5 minutes before and after injection to reduce injection site reactions Labs before next visit in 4 months (2) High risk medication use: Code(s): Z79.899 - Other auto porter (current) drug therapy Category: Medical Plan: Discussed risks of TNF inhibitor such as increased risk of infection, increased risk of malignancy, injection site reactions and others. advised patient to call the office if he develops an infection. Plan I spent 27 minutes reviewing patient's chart, evaluating patient, ordering diag nostic workup, counseling patient and documenting in the chart Orders: Orders Comprehensive Met. Panel 3 Months M47.819 - Spondylosis without myelopathy or radiculopathy, site unspecified, Z79.899 - Other fci (current) drug therapy C Reactive Protein 3 Months M47.819 - Spondylosis without myelopathy or radiculopathy, site unspecified, Z79.899 - Other fci (current) drug therapy Erythrocyte Sedimentation Rate 3 Months M47.819 - Spondylosis without myelopathy or radiculopathy, site unspecified, Z79.899 - Other fci (current) drug therapy Complete Blood Count Auto Diff 3 Months M47.819 - Spondylosis without myelopathy or radiculopathy, site unspecified, Z79.899 - Other auto porter (current) drug therapy Medications: Refilled leflunomide 20 mg PO 3XW 36 tabs 0RF Coding Level of Care Code Est Pt Level 4 (69472) Diagnoses 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
[2024-08-04 10:06] VITALS: BP 116/62; PULSE 47; O2SAT 93; BMI 33.7
== END 2024-08-04 10:32 | disposition home or self-care (01) ==
PROVIDERS: PCP Family Medicine; Visit Provider Student in an Organized Health Care Education/Training Program
DX: M45.A Non-radiographic axial spondyloarthritis (principal); Z79.899 Other long term (current) drug therapy
CPT/HCPCS: 99214

== ENCOUNTER → 2024-08-04 09:44 | Outpatient (BNVA) | payer MEDICARE, MEDICAID, SELFPAY | PROVIDERS: PCP Family Medicine; Visit Provider Student in an Organized Health Care Education/Training Program | DX: M45.A Non-radiographic axial spondyloarthritis (principal); M47.819 Spondylosis without myelopathy or radiculopathy, site unspecified; Z79.899 Other long term (current) drug therapy | CPT/HCPCS: 99212 ==

== ENCOUNTER 2024-11-16 10:57 | Outpatient (REF) | payer MEDICARE, MEDICAID, SELFPAY ==
--- OUTSIDE RECORDS SUMMARY | 2024-11-16 11:05 | XMS_ITS | Continuity of Care Document ---
Author Organization [facility] Address [address] [place] [address]- Care Team Providers Care Business Systems Technician Name Role Phone Tom MOROCHO, Marilu Primary Care Physician [place] [facility] [place]): [place]23/24 [facility] [address] [place] [id number] Attending Physician: Robel Hoyt Admitting Physician: AdmtrRobel Referring Physician: AdmtrRobel Encounter Type: Triage Allergies, Adverse Reactions, Alerts Substance Criticality Severity Reaction Reaction Severity Status Lamictal rash Active Immunizations Given and Recorded Vaccine Date Status Refusal Reason tetanus-diphtheria toxoids (Td) 09/15/24 Given tetanus-diphtheria toxoids (Td) 1 01/17/08 Given influenza virus vaccine, inactivated 09/15/24 Give n influenza virus vaccine, inactivated 12/03/17 Chandana rded SARS-CoV-2 mRNA ([id number]) vax 12/18/21 Recorded SARS-CoV-2 (COVID-19) mRNA BNT-162b2 vac 08/29/21 Recorded SARS-CoV-2 (COVID-19) mRNA BNT-162b2 vac 02/02/21 Recorded SARS-CoV-2 (COVID-19) mRNA BNT-162b2 vac 01/10/21 Recorded SARS-CoV-2 (COVID-19) mRNA BNT-162b2 vac 12/19/20 Recorded 1Admin Note: [facility] Medications Arava 20 mg oral tablet See Instructions, 1 tablet By Mouth 4 times a week, # 4 tablet, 0 Refills, Maintenance, 02/18/23 2:29:00 PM EDT, Tablet, [facility], Partial fill upon patient request if the prescription is fora schedule II opioid drug., 178, cm, 02/28/22 11:42:00 EDT, Height, 108, kg, 05/25/21 17:44:00 EDT,Dry Weight Start Date: 02/18/23 Status: Ordered Quantity: 4.0 Unit: tablet Repeat number: 1 atenolol 50 mg oral tablet See Instructions, TAKE 1 TABLET BY MOUTH DAILY, # 90 tablet, Refills 1, Maintenance, 10/20/24 8:58:00 AM EST, Instructions Replace Required Details, Route to Pharmacy Electronically, [facility], 174.4, cm, 09/16/24 10:50:00 EDT, Height, 105.2, kg, 07/01/24 6:45:00 EDT, Dry Weight Start Date: 10/20/24 Status: Ordered Quantity: 90.0 Unit: tablet Repeat number: 1 atorvastatin 40 mg oral tablet See Instructions, TAKE 1 TABLET BY MOUTH ONCE DAILY, # 90 tablet, 1 Refills, Maintenance, 04/14/24 11:45:00 AM EDT, [facility], 178, cm, 02/28/24 13:30:00 EDT, Height, 107, kg, 02/28/24 13:30:00 EDT, Dry Weight Start Date: 04/14/24 Status: Ordered Quantity: 90.0 Unit: tablet Repeat number: 1 baclofen 10 mg oral tablet 10 mg, 1, tablet, By Mouth, 4 times a day, # 120 tablet, Refills 1, Tot. Refills 1, Maintenance, 04/11/23 8:25:00 AM EDT, Route to Pharmacy Electronically, [facility], Partial fill upon patient request if the prescription is for a schedule II opioid drug., 178, cm, 03/14/23 14:30:00 EDT, Height, 108, kg, 05/25/21 17:44:00 EDT, Dry Weight Start Date: 04/11/23 Status: Ordered Quantity: 120.0 Unit: tablet Repeat number: 2 BiPAP Machine See Instructions, # 1 each, Maintenance, BiPAP 12/4, rate 12 ramp prn mask per preference, 04/30/11 2:47:21 PM EDT Start Date: 04/30/11 Status: Ordered Quantity: 1.0 Unit: each Repeat number: 1 BiPAP Machine See Instructions, # 1 each, Refills 11, Tot. Refills 11, Maintenance, [facility] - Change settings on BiPAP ST: 02/09 RR 14. Dx: DIANA (G47.33), 07/16/19 1:43:00 PM EDT, Compound Start Date: 07/16/19 Status: Ordered Quantity: 1.0 Unit: each Repeat number: 12 buPROPion 200 mg/12 hours (SR) oral tablet, extended release 1 tablet, By Mouth, 2 times a day, # 180 tablet, 0 Refills, Maintenance, 07/28/24 4:05:00 PM EDT, [facility], 178, cm, 07/08/24 11:27:00 EDT, Height, 105.2, kg, 07/01/24 6:45:00 EDT, Dry Weight Start Date: 07/28/24 Status: Ordered Quantity: 180.0 Unit: tablet Repeat number: 1 citalopram 40 mg oral tablet 1 tablet, By Mouth, Daily, # 90 tablet, 3 Refills, Maintenance, 12/10/23 10:28:00 AM EST, [facility], 178, cm, 07/05/23 8:00:00 EDT, Height Start Date: 12/10/23 Status: Ordered Quantity: 90.0 Unit: tablet Repeat number: 4 Enbrel Sure Click 50 mg/mL subcutaneous solution = 50 mg, Subcutaneous Injection, Every week, # 3.92 mL, 0 Refills, Maintenance, 09/15/24 9:50:00 AMEDT, Solution, Partial fill upon patient request if the prescription is for a schedule II opioid drug. Start Date: 09/15/24 Status: Ordered Quantity: 3.92 Unit: mL Repeat number: 1 etodolac 600 mg oral tablet, extended release 1 tablet = 600 mg, By Mouth, Daily, # 30 tablet, 0 Refills, Maintenance, 01/02/23 2:13:00 PM EST, ERTablet, [facility], Partial fill upon patient request if the prescription is for a scheduleII opioid drug., 178, cm, 02/28/22 11:42:00 EDT, Height, 108, kg, 05/25/21 17:44:00 EDT, Dry Weight Start Date: 01/02/23 Status: Ordered Quantity: 30.0 Unit: tablet Repeat number: 1 High Potency Vitamin D3 50 mcg (2000 intl units) oral capsule 1 capsule, By Mouth, Daily, # 90 capsule, 0 Refills, Maintenance, 10/08/24 9:37:00 AM EST, [facility], 174.4, cm, 09/16/24 10:50:00 EDT, Height, 105.2, kg, 07/01/24 6:45:00 EDT, Dry Weight Start Date: 10/08/24 Status: Ordered Quantity: 90.0 Unit: capsule Repeat number: 1 indomethacin 75 mg oral capsule, extended release 1 capsule = 75 mg, By Mouth, Daily, PRN for arthritis, # 30 capsule, 1 Refills, Maintenance, :42:00 AM EST, CR Capsule, [facility], Partial fill upon patient request if the prescription is for a schedule II opioid drug., 178, cm, 02/28/22 11:42:00 EDT, Height, 108, kg, 05/25/21 17:44:00 EDT, Dry Weight Start Date: 01/22/23 Status: Ordered Quantity: 30.0 Unit: capsule Repeat number: 2 pantoprazole 40 mg oral delayed release tablet 1 tablet, By Mouth, Daily, # 90 tablet, 0 Refills, Maintenance, 10/06/24 12:48:00 PM EST, 174.4, cm, 09/16/24 10:50:00 EDT, Height, 105.2, kg, 07/01/24 6:45:00 EDT, Dry Weight Start Date: 10/06/24 Status: Ordered Quantity: 90.0 Unit: tablet Repeat number: 1 QUEtiapine 50 mg oral tablet 1 tablet, By Mouth, Daily, # 90 tablet, 0 Refills, Maintenance, 08/26/24 9:16:00 AM EDT, [facility], 178, cm, 07/08/24 11:27:00 EDT, Height, 105.2, kg, 07/01/24 6:45:00 EDT, Dry Weight Start Date: 08/26/24 Status: Ordered Quantity: 90.0 Unit: tablet Repeat number: 1 sildenafil 100 mg oral tablet 0.5 tablet = 50 mg, By Mouth, Daily, 1 hour before sexual activity, # 15 tablet, 5 Refills, Maintenance, 09/15/24 9:40:00 AM EDT, Tablet, [facility], Partial fill upon patient request if the prescription is for a schedule II opioid drug., 174.4, cm, 09/15/24 9:23:00 EDT, Height, 105.2, kg, 07/01/24 6:45:00 EDT, Dry Weight Start Date: 09/15/24 Status: Ordered Quantity: 15.0 Unit: tablet Repeat number: 6 Indication: Male erectile dysfunction, unspecified Problem List Condition Confirmation Course Effective Dates Status H ealth Status Informant Ankylosing spondylitis Confirmed Active Bipolar disorder Confirmed Active Sleep apnea, central Confirmed Active Erectile dysfunction Confirmed Active Gastro-esophageal reflux disease Confirmed Active H/O repair of left rotator cuff Confirmed Active History of total right knee replacement Confirmed Active Hyperlipidemia Confirmed Active Hypertension Confirmed Active Insomnia Confirmed Active Mitral valve regurgitation Confirmed Active Obese class I Confirmed Active Prediabetes Confirmed Active Restless legs syndrome Confirmed Active Social History Social History Type Response Smoking Status Former smoker, quit more than 30 days ago; Started at age: 14; Stopped at age: 40; entered on: 09/05/21 Sex Sex Representation Male (finding) Patient Care team information Care Team Personnel Name: Shakila Crouch LPN Position: [facility] Outreach Member Role: Lifetime Consulting Physician Address: [address] [place] [id number] [place] Telecom: Name: Marilu Santos NP Position: [facility] PCO Associate Professional Member Role: PCP Address: [address] [place] [phone]- Telecom: Care Team Related Persons Name: ISADORA LUEVANO Name: REANNA LUEVANO Insurance Providers Guarantor name: JESSICA ZEKESHAN Health Plan Information #: 1 Payer: MEDICARE PART B OUTPT Member Number: NA Policy Number: NA Group Number: NA Health Plan Information #: 2 Payer: [place] Member Number: NA Policy Number: NA Group Number: NA
--- OUTSIDE RECORDS SUMMARY | 2024-11-16 11:05 | XMS_ITS | Continuity of Care Document ---
Author Organization [facility] Medicine Address [address] [place] [address]- Care Team Providers Care Graphics Manager Name Role Phone Marilu Santos NP Primary Care Physician Encounter [facility] Date(s): 10/06/24 - 11/05/24 [facility] Medicine [address] [place] [id number] Encounter Type: Triage Allergies, Adverse Reactions, Alerts Substance Criticality Severity Reaction Reaction Severity Status Lamictal rash Active Immunizations Given and Recorded Vaccine Date Status Refusal Reason tetanus-diphtheria toxoids (Td) 09/15/24 Given tetanus-diphtheria toxoids (Td) 1 01/17/08 Given influenza virus vaccine, inactivated 09/15/24 Give n influenza virus vaccine, inactivated 12/03/17 Chandana rded SARS-CoV-2 mRNA ([id number]) vax 12/18/21 Recorded SARS-CoV-2 (COVID-19) mRNA BNT-162b2 vac 08/29/21 Recorded SARS-CoV-2 (COVID-19) mRNA BNT-162b2 vac 02/02/21 Recorded SARS-CoV-2 (COVID-19) mRNA BNT-162b2 vac 01/10/21 Recorded SARS-CoV-2 (COVID-19) mRNA BNT-162b2 vac 12/19/20 Recorded 1Admin Note: [facility] DEPT OF PUBLIC HEALTH Medications Arava 20 mg oral tablet See Instructions, 1 tablet By Mouth 4 times a week, # 4 tablet, 0 Refills, Maintenance, 02/18/23 2:29:00 PM EDT, Tablet, [facility], Partial fill upon patient request if [...] Required Details, Route to Pharmacy Electronically, [facility], 174.4, cm, 09/16/24 10:50:00 EDT, Height, 105.2, kg, 07/01/24 6:45:00 EDT, Dry Weight Start Date: 10/20/24 Status: Ordered Quantity: 90.0 Unit: tablet Repeat number: 1 atorvastatin 40 mg oral tablet See Instructions, TAKE 1 TABLET BY MOUTH ONCE DAILY, # 90 tablet, 1 Refills, Maintenance, 11/02/24 9:11:00 AM EST, [facility], 174.4, cm, 09/16/24 10:50:00 EDT, Height, 105.2, kg, 07/01/24 6:45:00 EDT, Dry Weight Start Date: 11/02/24 Status: Ordered Quantity: 90.0 Unit: tablet Repeat number: 1 baclofen 10 mg oral tablet 10 mg, 1, tablet, By Mouth, 4 times a day, # 120 tablet, Refills 1, Tot. Refills 1, Maintenance, 04/11/23 8:25:00 AM EDT, Route to Pharmacy Electronically, [facility], Partial fill upon patient request if the prescription is for a schedule II opioid drug., 178, cm, 03/14/23 14:30:00 EDT, Height, 108, kg, 05/25/21 17:44:00 EDT, Dry Weight Start Date: 04/11/23 Status: Ordered Quantity: 120.0 Unit: tablet Repeat number: 2 BiPAP Machine See Instructions, # 1 each, Maintenance, BiPAP 10/21, rate 12 ramp prn mask per preference, [...] mg/12 hours (SR) oral tablet, extended release See Instructions, TAKE 1 TABLET BY MOUTH TWICE DAILY, # 180 tablet, 1 Refills, Maintenance, 11/02/24 9:11:00 AM EST, [facility], 174.4, cm, 09/16/24 10:50:00 EDT, Height, 105.2, kg, 07/01/24 6:45:00 EDT, Dry Weight Start Date: 11/02/24 Status: Ordered Quantity: 180.0 Unit: tablet Repeat number: 1 citalopram 40 mg oral tablet 1 tablet, By Mouth, Daily, # 90 tablet, 3 Refills, Maintenance, 12/10/23 10:28:00 AM EST, [facility], 178, cm, 07/05/23 8:00:00 EDT, [...] Refills, Maintenance, 01/02/23 2:13:00 PM EST, ERTablet, [facility], Partial fill upon patient request if [...] 0 Refills, Maintenance, 10/08/24 9:37:00 AM EST, [facility], 174.4, cm, 09/16/24 10:50:00 EDT, Height, 105.2, kg, 07/01/24 6:45:00 EDT, Dry Weight Start Date: 10/08/24 Status: Ordered Quantity: 90.0 Unit: capsule Repeat number: 1 indomethacin 75 mg oral capsule, extended release 1 capsule = 75 mg, By Mouth, Daily, PRN for arthritis, # 30 capsule, 1 Refills, Maintenance, :42:00 AM EST, CR Capsule, [facility], Partial fill upon patient request [...] 0 Refills, Maintenance, 08/26/24 9:16:00 AM EDT, [facility], 178, cm, 07/08/24 11:27:00 EDT, Height, 105.2, kg, 07/01/24 6:45:00 EDT, Dry Weight Start Date: 08/26/24 Status: Ordered Quantity: 90.0 Unit: tablet Repeat number: 1 sildenafil 100 mg oral tablet 0.5 tablet = 50 mg, By Mouth, Daily, 1 hour before sexual activity, # 15 tablet, 5 Refills, Maintenance, 09/15/24 9:40:00 AM EDT, Tablet, [facility], Partial fill upon patient request if [...] Team Personnel Name: Shakila Crouch LPN Position: [facility] Outreach Member Role: Lifetime Consulting Physician Address: [address] [place] [id number] Telecom: Name: Marilu Santos NP Position: [facility] PCO Associate Professional Member Role: PCP Address: [address] [place] [id number] Telecom: Care Team Related Persons Name: ISADORA LUEVANO Name: REANNA LUEVANO Insurance Providers Guarantor name: JESSICA LUEVANO Health Plan Information #: 1 Payer: MEDICARE PART B OUTPT Member Number: NA Policy Number: NA Group Number: NA Health Plan Information #: 2 Payer: [place] Member Number: NA Policy Number: NA Group Number: NA
--- OUTSIDE RECORDS SUMMARY | 2024-11-16 11:05 | XMS_ITS | Continuity of Care Document ---
Author Organization [facility] Medicine Address [address] [place] [address]- Care Team Providers Care Software Systems Engineer Name Role Phone Marilu Santos NP Primary Care Physician Encounter [facility] Date(s): 10/06/24 - 11/05/24 [facility] Medicine [address] [place] [id number] Encounter Type: Triage Allergies, Adverse Reactions, Alerts Substance Criticality Severity Reaction Reaction Severity Status Lamictal rash Active Immunizations Given and Recorded Vaccine Date Status Refusal Reason tetanus-diphtheria toxoids (Td) 09/15/24 Given tetanus-diphtheria toxoids (Td) 1 01/17/08 Given influenza virus vaccine, inactivated 09/15/24 Give n influenza virus vaccine, inactivated 12/03/17 Chandana rded SARS-CoV-2 mRNA ([id number]) vax 12/18/21 Recorded SARS-CoV-2 (COVID-19) mRNA BNT-162b2 vac 08/29/21 Recorded SARS-CoV-2 (COVID-19) mRNA BNT-162b2 vac 02/02/21 Recorded SARS-CoV-2 (COVID-19) mRNA BNT-162b2 vac 01/10/21 Recorded SARS-CoV-2 (COVID-19) mRNA BNT-162b2 vac 12/19/20 Recorded 1Admin Note: [facility] DEPT OF PUBLIC HEALTH Medications Arava 20 mg oral tablet See Instructions, 1 tablet By Mouth 4 times a week, # 4 tablet, 0 Refills, Maintenance, 02/18/23 2:29:00 PM EDT, Tablet, [facility], Partial fill upon patient request if [...] Required Details, Route to Pharmacy Electronically, [facility], 174.4, cm, 09/16/24 10:50:00 EDT, Height, 105.2, kg, 07/01/24 6:45:00 EDT, Dry Weight Start Date: 10/20/24 Status: Ordered Quantity: 90.0 Unit: tablet Repeat number: 1 atorvastatin 40 mg oral tablet See Instructions, TAKE 1 TABLET BY MOUTH ONCE DAILY, # 90 tablet, 1 Refills, Maintenance, 11/02/24 9:11:00 AM EST, [facility], 174.4, cm, 09/16/24 10:50:00 EDT, Height, 105.2, kg, 07/01/24 6:45:00 EDT, Dry Weight Start Date: 11/02/24 Status: Ordered Quantity: 90.0 Unit: tablet Repeat number: 1 baclofen 10 mg oral tablet 10 mg, 1, tablet, By Mouth, 4 times a day, # 120 tablet, Refills 1, Tot. Refills 1, Maintenance, 04/11/23 8:25:00 AM EDT, Route to Pharmacy Electronically, [facility], Partial fill upon patient request if [...] 1 Refills, Maintenance, 11/02/24 9:11:00 AM EST, [facility], 174.4, cm, 09/16/24 10:50:00 EDT, Height, 105.2, kg, 07/01/24 6:45:00 EDT, Dry Weight Start Date: 11/02/24 Status: Ordered Quantity: 180.0 Unit: tablet Repeat number: 1 citalopram 40 mg oral tablet 1 tablet, By Mouth, Daily, # 90 tablet, 3 Refills, Maintenance, 12/10/23 10:28:00 AM EST, [facility], 178, cm, 07/05/23 8:00:00 EDT, [...] 0 Refills, Maintenance, 10/08/24 9:37:00 AM EST, [facility], 174.4, cm, 09/16/24 10:50:00 EDT, Height, 105.2, kg, 07/01/24 6:45:00 EDT, Dry Weight Start Date: 10/08/24 Status: Ordered Quantity: 90.0 Unit: capsule Repeat number: 1 indomethacin 75 mg oral capsule, extended release 1 capsule = 75 mg, By Mouth, Daily, PRN for arthritis, # 30 capsule, 1 Refills, Maintenance, :42:00 AM EST, CR Capsule, [facility], Partial fill upon patient request [...] 0 Refills, Maintenance, 08/26/24 9:16:00 AM EDT, [facility], 178, cm, 07/08/24 11:27:00 EDT, Height, 105.2, kg, 07/01/24 6:45:00 EDT, Dry Weight Start Date: 08/26/24 Status: Ordered Quantity: 90.0 Unit: tablet Repeat number: 1 sildenafil 100 mg oral tablet 0.5 tablet = 50 mg, By Mouth, Daily, 1 hour before sexual activity, # 15 tablet, 5 Refills, Maintenance, 09/15/24 9:40:00 AM EDT, Tablet, [facility], Partial fill upon patient request if [...] Team Personnel Name: Shakila Crouch LPN Position: [facility] Outreach Member Role: Lifetime Consulting Physician Address: [address] [place] [id number] Telecom: Name: Marilu Santos NP Position: [facility] PCO Associate Professional Member Role: PCP Address: [address] [place] [id number] Telecom: Care Team Related Persons Name: ISADORA LUEVANO Name: REANNA LUEVANO Insurance Providers Guarantor name: JESSICA LUEVANO Health Plan Information #: 1 Payer: MEDICARE PART B OUTPT Member Number: NA Policy Number: NA Group Number: NA Health Plan Information #: 2 Payer: [place] Member Number: NA Policy Number: NA Group Number: NA
[2024-11-16 11:22] LABS: MANUAL DIFF FLAG NO
[2024-11-16 11:39] LABS: Basophils Absolute Auto 0.1 X10*3/uL (0.0-0.2); Eosinophils Absolute Auto 0.3 X10*3/uL (0.0-0.4); Eosinophils Percent Auto 4.3 % (0-4); Hematocrit 44.4 % (42.0-52.0); Hemoglobin 15.1 g/dl (14.0-18.0); Imm Gran Abs Auto 0.02 X10*3/uL (0.00-0.03); Imm Gran Pct Auto 0.3 % (0.0-0.4); Lymphocytes Absolute Auto 2.5 X10*3/uL (1.2-4.9); Lymphocytes Percent Auto 35.7 % (20-40); Mean Corpuscular Hemoglobin 30.7 pg (27.0-33.0); Mean Corpuscular Volume 90.2 fL (80.0-98.0); Mean Platelet Volume 12.3 fL (9.4-12.4); Monocytes Absolute Auto 0.7 X10*3/uL (0.1-1.2); Monocytes Percent Auto 10.6 % (2-11); Neutrophils Absolute Auto 3.3 x10*3/uL (2.0-8.3); Neutrophils Percent Auto 47.1 % (45-73); Platelet Count 210 X10*3/uL (160-400); Red Blood Count 4.92 X10*6/uL (4.60-5.80); Red Cell Distribution Width 13.5 % (11.0-16.0)
[2024-11-16 12:02] LABS: Alanine Aminotransferase 27 U/L (0-40); Albumin Level 4.2 g/dL (3.5-5.0); Alkaline Phosphatase 64 U/L (39-117); Anion Gap 11 (12-20); Aspartate Amino Transferase 23 U/L (5-37); Bilirubin Total 0.6 mg/dL (0.0-1.0); Blood Urea Nitrogen 13 mg/dL (9-16); C Reactive Protein < 0.10 mg/dL (< or = 0.50); Calcium 9.2 mg/dL (8.4-10.2); Carbon Dioxide 25 mmol/L (22-29); Chloride 106 mmol/L (96-108); Estimated Glomerular Filt Rate > 60; Glucose Random 121 mg/dL (60-115); Potassium 4.2 mmol/L (3.3-5.1); Sodium 138 mmol/L (135-145)
[2024-11-16 12:20] LABS: Erythrocyte Sedimentation Rate 2 MM/HR (0-15)
== END 2024-11-16 10:58 | disposition home or self-care (01) ==
LOC: HO.LAB 10:57
PROVIDERS: PCP Nurse Practitioner Family; Visit Provider Student in an Organized Health Care Education/Training Program
DX: M47.819 Spondylosis without myelopathy or radiculopathy, site unspecified (principal); Z79.899 Other long term (current) drug therapy
CPT/HCPCS: 36415; 80053; 85025; 85652; 86140

== ENCOUNTER 2024-11-19 10:37 | Outpatient (AMB) | payer MEDICARE, MEDICAID, SELFPAY ==
--- NOTE | 2024-11-19 10:46 | A.OFFVIS_ITS ---
Vital Signs 11/19/24 10:50 Height 5 ft 9 in Weight 231 lb 0.711 oz BMI 34.1 BP 140/82 H Blood Pressure Location Lt brachial Position Sitting Pulse 52 Pulse Source Pulse Oximeter Pulse Oximetry (%) 98 Oxygen Delivery Method Room Air Intake Visit Reasons: Intake Note: Patient presents for . 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 On Enbrel weekly, leflunomide 20 mg x3 days a week and etodolac 300 mg once daily. He states that he feels about the same overall. Lowering his etodolac from Twice daily to once daily did not make much of a difference. Denies any recent infections or fevers. States that recently has been having some right shoulder and right hand pain. Did not notice any swelling. Denied any recent trauma or overuse Initial history: This is a 57-year-old male with inflammatory spondyloarthropathy who presents as a new patient. 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 States that he has remained stable on leflunomide 20 mg daily 3 days a week. He has also been taking etodolac 600 mg daily XR for many years and has remained relatively stable on this regimen. States that 6 weeks ago his insurance denied Etodolac in his back pain has been worse. States that his back pain is worse with any activity. Occasionally back pain would wake him up. He does not have significant morning stiffness. Denies any peripheral joint complaints. No history suggestive of uveitis. Never had a colonoscopy but denies any bowel complaints or blood in the stool. No known family history of autoimmune rheumatic disease Per Dr. Gutierrez's notes: Clinical diagnosis of spondyloarthropathy was made he years ago around 2004 on the basis of sacroiliac pain, inflammatory symptoms, NSAID response.? No radiographic sacroiliitis. In the remote past he was tried on sulfasalazine and methotrexate.? He ended up on leflunomide and has remained on this medication since at least 2006.? He has tried a couple of times to stop but there was a substantial flare in the symptoms.? He is also on etodolac [facility] Medical History Sleep apnea Primary fibromyalgia syndrome Low back pain Carpal tunnel syndrome Major depression, melancholic type Anemia Surgical History History of shoulder surgery History of varicocele H/O hand surgery Hx of appendectomy H/O left knee surgery S/P left rotator cuff repair S/P arthroscopic surgery of right knee Family History Mother Arthritis Father Arthritis Social History Household Members: Spouse and Family Alcohol intake: current Alcohol intake frequency: does not drink Patient Tobacco Use Status: Former Tobacco user Current occupational status: disabled Current occupation: [employer] Review of Systems [facility] Reports arthralgias Physical Exam Vital Signs: Last Vital Signs Pulse 52 11/19/24 10:50 BP 140/82 H 11/19/24 10:50 Pulse Ox 98 11/19/24 10:50 Oxygen Delivery Method Room Air 11/19/24 10:50 BMI result Body Mass Index 34.1 Const General: cooperative, healthy appearing and comfortable Nutritional Appearance: obese Orientation/consciousness: patient oriented x3 Limitations: no limitations HEENT Head: Yes normocephalic and Yes atraumatic Resp Effort & Inspection: normal respiratory effort and able to speak in complete sentences Neuro General: patient oriented x3 Extrem Other: Minimal right shoulder pain with full abduction Negative rotator cuff provocative maneuvers bilaterally Mild right hand 4th and 5th flexor tendon tenderness Bilateral lumbar paraspinal muscle tenderness Assessment & Plan Assessment & Plan (1) 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 On Enbrel 50 mg once weekly, leflunomide 20 mg 3 times a week and etodolac 300 mg daily. Doing very well overall. Continues to have some mild symptoms of degenerative arthritis Continue current meds Labs before next visit in 4 months (2) High risk medication use: Code(s): Z79.899 - Other senior care (current) drug therapy Category: Medical Plan: Discussed risks of TNF inhibitor such as increased risk of infection, increased risk of malignancy, injection site reactions and others. advised patient to call the office if he develops an infection. Plan I spent 27 minutes reviewing patient's chart, evaluating patient, ordering diagnostic workup, counseling patient and documenting in the chart Orders: Orders Comprehensive Met. Panel 4 Months M47.819 - Spondylosis without myelopathy or radiculopathy, site unspecified, Z79.899 - Other senior care (current) drug therapy Complete Blood Count Auto Diff 4 Months M47.819 - Spondylosis without my elopathy or radiculopathy, site unspecified, Z79.899 - Other senior care (current) drug therapy C Reactive Protein 4 Months M47.819 - Spondylosis without myelopathy or radicul opathy, site unspecified, Z79.899 - Other middle or intermediate school principal (current) drug therapy Erythrocyte Sedimentation Rate 4 Months M47.819 - Spondylosis without myelopathy or radiculopathy, site unspecified, Z79.899 - Other senior care (current) drug therapy Coding Level of Care Code Est Pt Level 4 (51581) Diagnoses 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
[2024-11-19 10:50] VITALS: BP 140/82; PULSE 52; O2SAT 98; BMI 34.1
== END 2024-11-19 11:02 | disposition home or self-care (01) ==
PROVIDERS: PCP Family Medicine; Visit Provider Student in an Organized Health Care Education/Training Program
DX: M45.A Non-radiographic axial spondyloarthritis (principal); Z79.899 Other long term (current) drug therapy
CPT/HCPCS: 99214

== ENCOUNTER → 2024-11-19 10:37 | Outpatient (BNVA) | payer MEDICARE, MEDICAID, SELFPAY | PROVIDERS: PCP Family Medicine; Visit Provider Student in an Organized Health Care Education/Training Program | DX: M45.A Non-radiographic axial spondyloarthritis (principal); Z79.899 Other long term (current) drug therapy | CPT/HCPCS: 99212 ==

== ENCOUNTER 2025-03-30 09:16 | Outpatient (REF) | payer MEDICARE, MEDICAID, SELFPAY ==
[2025-03-30 09:28] LABS: MANUAL DIFF FLAG NO
--- OUTSIDE RECORDS SUMMARY | 2025-03-30 09:46 | XMS_ITS | Continuity of Care Document ---
Author Organization [facility] Medicine Address [address] [place] [address]- Care Team Providers Care Acquisition Marketing Manager Name Role Phone Tom MOROCHO, Marilu Primary Care Physician Encounter [facility] Date(s): 02/25/25 - 03/27/[address] [email or web address] Attending Physician: Robel Hoyt Admitting Physician: AdmtrRobel Referring Physician: Admtr ArDwaine Encounter Type: Triage Allergies, Adverse Reactions, Alerts Substance Criticality Severity Reaction Reaction Severity Status Lamictal rash Active Immunizations Given and Recorded Vaccine Date Status Refusal Reason tetanus-diphtheria toxoids (Td) 09/15/24 Given tetanus-diphtheria toxoids (Td) 1 01/17/08 Given influenza virus vaccine, inactivated 09/15/24 Give n influenza virus vaccine, inactivated 12/03/17 Chandana rded SARS-CoV-2 mRNA ([id number]) vax 12/18/21 Recorded SARS-CoV-2 (COVID-19) mRNA BNT-162b2 vac 08/29/21 Recorded SARS-CoV-2 (COVID-19) mRNA BNT-162b2 vac 02/02/21 Recorded SARS-CoV-2 (COVID-19) mRNA BNT-162b2 vac 01/10/21 Recorded SARS-CoV-2 (COVID-19) mRNA BNT-162b2 vac 12/19/20 Recorded 1Admin Note: [facility] DEPT OF [facility] HEALTH Medications Arava 20 mg oral tablet See Instructions, 1 tablet By Mouth 4 times a week, # 4 tablet, 0 Refills, Maintenance, 02/18/23 2:29:00 PM EDT, Tablet, [facility], Partial fill upon patient request if [...] Required Details, Route to Pharmacy Electronically, [facility], 174.4, cm, 09/16/24 10:50:00 EDT, Height, 105.2, kg, 07/01/24 6:45:00 EDT, Dry Weight Start Date: 10/20/24 Status: Ordered Quantity: 90.0 Unit: tablet Repeat number: 1 atorvastatin 40 mg oral tablet 1 tablet, By Mouth, Daily, # 90 tablet, 1 Refills, Maintenance, 03/08/25 10:43:00 AM EDT, [facility], 176, cm, 02/25/25 14:09:00 EDT, Height, 101.5, kg, 01/21/25 8:58:00 EST, Dry Weight Start Date: 03/08/25 Status: Ordered Quantity: 90.0 Unit: tablet Repeat number: 1 baclofen 10 mg oral tablet 10 mg, 1, tablet, By Mouth, 4 times a day, # 120 tablet, Refills 1, Tot. Refills 1, Maintenance, 04/11/23 8:25:00 AM EDT, Route to Pharmacy Electronically, [facility], Partial fill upon patient request if [...] 1 Refills, Maintenance, 11/02/24 9:11:00 AM EST, [facility], 174.4, cm, 09/16/24 10:50:00 EDT, Height, 105.2, kg, 07/01/24 6:45:00 EDT, Dry Weight Start Date: 11/02/24 Status: Ordered Quantity: 180.0 Unit: tablet Repeat number: 1 citalopram 40 mg oral tablet 1 tablet, By Mouth, Daily, # 90 tablet, 1 Refills, Maintenance, 12/29/24 11:28:00 AM EST, [facility], 174.4, cm, 12/22/24 10:22:00 EST, Height, 105.2, kg, 07/01/24 6:45:00 EDT, Dry Weight Start Date: 12/29/24 Status: Ordered Quantity: 90.0 Unit: tablet Repeat number: 2 Enbrel Sure Click 50 mg/mL subcutaneous solution [...] Maintenance, 01/02/23 2:13:00 PM EST, ERTablet, [facility], Partial fill upon patient request if the prescription is for a scheduleII opioid drug., 178, cm, 02/28/22 11:42:00 EDT, Height, 108, kg, 05/25/21 17:44:00 EDT, Dry Weight Start Date: 01/02/23 Status: Ordered Quantity: 30.0 Unit: tablet Repeat number: 1 indomethacin 75 mg oral capsule, extended release 1 capsule = 75 mg, By Mouth, Daily, PRN for arthritis, # 30 capsule, 1 Refills, Maintenance, :42:00 AM EST, CR Capsule, [facility], Partial fill upon patient request if the prescription is for a schedule II opioid drug., 178, cm, 02/28/22 11:42:00 EDT, Height, 108, kg, 05/25/21 17:44:00 EDT, Dry Weight Start Date: 01/22/23 Status: Ordered Quantity: 30.0 Unit: capsule Repeat number: 2 pantoprazole 40 mg oral delayed release tablet 1 tablet, By Mouth, Daily, # 90 tablet, 1 Refills, Maintenance, 01/20/25 6:02:00 PM EST, 174.4, cm, 12/22/24 10:22:00 EST, Height, 105.2, kg, 07/01/24 6:45:00 EDT, Dry Weight Start Date: 01/20/25 Status: Ordered Quantity: 90.0 Unit: tablet Repeat number: 1 QUEtiapine 50 mg oral tablet 1 tablet, By Mouth, Daily, # 90 tablet, 1 Refills, Maintenance, 11/24/24 3:16:00 PM EST, [facility], 174.4, cm, 09/16/24 10:50:00 EDT, Height, 105.2, kg, 07/01/24 6:45:00 EDT, Dry Weight Start Date: 11/24/24 Status: Ordered Quantity: 90.0 Unit: tablet Repeat number: 1 sildenafil 100 mg oral tablet 0.5 tablet = 50 mg, By Mouth, Daily, 1 hour before sexual activity, # 15 tablet, 5 Refills, Maintenance, 09/15/24 9:40:00 AM EDT, Tablet, [facility], Partial fill upon patient request if the prescription is for a schedule II opioid drug., 174.4, cm, 09/15/24 9:23:00 EDT, Height, 105.2, kg, 07/01/24 6:45:00 EDT, Dry Weight Start Date: 09/15/24 Status: Ordered Quantity: 15.0 Unit: tablet Repeat number: 6 Indication: Male erectile dysfunction, unspecified Vitamin D3 2000 intl units oral capsule 1 capsule, By Mouth, Daily, # 90 capsule, 1 Refills, Maintenance, 01/20/25 6:02:00 PM EST, [facility], 174.4, cm, 12/22/24 10:22:00 EST, Height, 105.2, kg, 07/01/24 6:45:00 EDT, Dry Weight Start Date: 01/20/25 Status: Ordered Quantity: 90.0 Unit: capsule Repeat number: 1 Problem List Condition Confirmation Course Effective Dates [...] on: 09/05/21 Sex Sex Representation Male (finding) Laboratory * Event Display: Non Lab Results Authored Date: Radiology * Event Display: X-Ray Spine, Non- Authored Date: Patient Care team information Care Team Personnel Name: Shakila Crouch LPN Position: [facility] Outreach Member Role: Lifetime Consulting Physician Address: [address] [place] [id number] Telecom: Name: Marilu Santos NP Position: [facility] PCO Associate Professional Member Role: PCP Address: [address] [place] [phone]- Telecom: Care Team Related Persons Name: ISADORA LUEVANO Name: REANNA LUEVANO Insurance Providers Guarantor name: [facility] Plan Information #: 1 Payer: MEDICARE PART B OUTPT Member Number: NA Policy Number: NA Group Number: NA Health Plan Information #: 2 Payer: [facility] Member Number: NA Policy Number: NA Group Number: NA
[2025-03-30 10:45] LABS: Basophils Absolute Auto 0.1 X10*3/uL (0.0-0.2); Basophils Percent Auto 1.7 % (0-2); Eosinophils Absolute Auto 0.2 X10*3/uL (0.0-0.4); Eosinophils Percent Auto 4.6 % (0-4); Hematocrit 40.3 % (42.0-52.0); Imm Gran Abs Auto 0.03 X10*3/uL (0.00-0.03); Imm Gran Pct Auto 0.6 % (0.0-0.4); Lymphocytes Absolute Auto 1.7 X10*3/uL (1.2-4.9); Lymphocytes Percent Auto 33.3 % (20-40); Mean Corpuscular HGB Conc 34.7 g/dl (31.0-36.0); Mean Corpuscular Hemoglobin 31.3 pg (27.0-33.0); Mean Corpuscular Volume 90.2 fL (80.0-98.0); Mean Platelet Volume 11.7 fL (9.4-12.4); Monocytes Absolute Auto 0.5 X10*3/uL (0.1-1.2); Monocytes Percent Auto 10.3 % (2-11); Neutrophils Absolute Auto 2.6 x10*3/uL (2.0-8.3); Neutrophils Percent Auto 49.5 % (45-73); Platelet Count 221 X10*3/uL (160-400); Red Blood Count 4.47 X10*6/uL (4.60-5.80); Red Cell Distribution Width 13.2 % (11.0-16.0); White Blood Count 5.2 X10*3/uL (4.8-10.8)
[2025-03-30 11:22] LABS: Erythrocyte Sedimentation Rate 2 MM/HR (0-15)
[2025-03-30 11:51] LABS: Alanine Aminotransferase 19 U/L (0-40); Albumin Level 3.9 g/dL (3.5-5.0); Anion Gap 12 (12-20); Aspartate Amino Transferase 19 U/L (5-37); Bilirubin Total 0.5 mg/dL (0.0-1.0); Blood Urea Nitrogen 15 mg/dL (9-16); C Reactive Protein < 0.10 mg/dL (< or = 0.50); Calcium 8.8 mg/dL (8.4-10.2); Carbon Dioxide 26 mmol/L (22-29); Chloride 106 mmol/L (96-108); Estimated Glomerular Filt Rate > 60; Glucose Random 115 mg/dL (60-115); Sodium 140 mmol/L (135-145); Total Protein 6.4 g/dL (6.5-8.0)
[2025-03-30 12:24] LABS: HBS Num1 180.51 mIU/mL (0-7.99); HBc Num1 0.11 S/CO (0.00-0.79); Hepatitis B Core Antibody Nonreactive (Nonreactive); Hepatitis B Surface Antigen Negative (Negative); ~HepC Num1 0.15 S/CO (0.00-0.79); ~Hepatitis B Surface Antibody REACTIVE (Nonreactive); ~Hepatitis C Antibody Nonreactive (Nonreactive)
[2025-03-30 12:36] LABS: Alkaline Phosphatase 66 U/L (39-117)
[2025-03-30 13:18] LABS: Hepatitis A Antibody IgM 0.15 Index (0-0.79); ~Hepatitis A Antibody IgM Nonreactive (Nonreactive)
[2025-04-01 23:32] LABS: TS Panel A 0; TSpotTB Negative (Negative)
[2025-04-01 23:33] LABS: TS Negative Control Passed; TS Panel B 0; TS Positive Control Passed
== END 2025-03-30 09:17 | disposition home or self-care (01) ==
LOC: HO.LAB 09:16
PROVIDERS: PCP Nurse Practitioner Family; Visit Provider Student in an Organized Health Care Education/Training Program
DX: M47.819 Spondylosis without myelopathy or radiculopathy, site unspecified (principal); Z79.899 Other long term (current) drug therapy
CPT/HCPCS: 36415; 80053; 85025; 85652; 86140; 86481; 86704; 86706; 86709; 86803; 87340

== ENCOUNTER 2025-04-06 11:00 | Outpatient (AMB) | payer MEDICARE, MEDICAID, SELFPAY ==
--- NOTE | 2025-04-06 11:15 | A.OFFVIS_ITS ---
Vital Signs 04/06/25 11:17 Height 5 ft 9 in Weight 222 lb 14.197 oz BMI 32.9 BP 140/80 H Blood Pressure Location Lt brachial Position Sitting Pulse 42 L Pulse Source Pulse Oximeter Pulse Oximetry (%) 98 Oxygen Delivery Method Room Air Intake Visit Reasons: Intake Note: Patient presents for follow up. Allergies lamotrigine [From Lamictal] Adverse Reaction (Unknown, Verified 04/06/25 11:17) Rash Medication List - Last Reconciled 04/06/25 by Sharla Mendoza MD atenolol 50 mg PO DAILY atorvastatin 40 mg PO DAILY baclofen 10 mg PO QID PRN bupropion HCl SR 200 mg PO BID cholecalciferol (vitamin D3) (D3-2000) 50 mcg PO DAILY citalopram 40 mg PO DAILY Enbrel SureClick (etanercept) 50 mg subcut QWEEK NS etodolac 300 mg PO DAILY gabapentin 100 mg PO BID leflunomide 20 mg PO 3XW pantoprazole 40 mg PO DAILY quetiapine 50 mg PO BEDTIME HPI Comments Details: Patient is a 60-year-old male with hypertension, hyperlipidemia, depression, degenerative lumbar disc disease and seronegative spondyloarthropathy here today for follow up Interval History: Patient last seen 11/19/[address] Suarez. At that time he was following up for his HLA B27 positive inflammatory spondyloarthropathy. He was on Enbrel 50 mg weekly, leflunomide 20 mg 3 days a week and etodolac 300 mg once a day. Overall he was doing the same. His etodolac was decreased from 300 mg twice a day to once a day without any changing his symptoms. He continued to have symptoms of mild degenerative arthritis but with respect to his axial spondyloarthritis he was in remission. Continues to complain of back pain Saw pain management and they want to do steroid injections but he does not have any one to give him a ride after the appointment Also complaining of right lateral wrist pain Rheumatologic History: +HLA b27 dx 2004 SSZ & MTX unknown whether failed or couldn't be tolerated on leflunomide since 2006 Enbrel added 04/2024 effective Initial history: This is a 57-year-old male with inflammatory spondyloarthropathy who presents as a new patient. 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 States that he has remained stable on leflunomide 20 mg daily 3 days a week. He has also been taking etodolac 600 mg daily XR for many years and has remained relatively stable on this regimen. States that 6 weeks ago his insurance denied Etodolac in his back pain has been worse. States that his back pain is worse with any activity. Occasionally back pain would wake him up. He does not have significant morning stiffness. Denies any peripheral joint complaints. No history suggestive of uveitis. Never had a colonoscopy but denies any bowel complaints or blood in the stool. No known family history of autoimmune rheumatic disease Per Dr. Gutierrez's notes: Clinical diagnosis of spondyloarthropathy was made he years ago around 2004 on the basis of sacroiliac pain, inflammatory symptoms, NSAID response.? No radiographic sacroiliitis. In the remote past he was tried on sulfasalazine and methotrexate.? He ended up on leflunomide and has remained on this medication since at least 2006.? He has tried a couple of times to stop but there was a substantial flare in the symptoms.? He is also on etodolac Current Rheumatology Medication(s): Enbrel 50mg SC every week Leflunomide 20mg x 3 days a week Etodolac 300mg daily Baclofen 10mg tid prn PFSH Medical History Sleep apnea Primary fibromyalgia syndrome Low back pain Carpal tunnel syndrome Major depression, melancholic type Anemia Surgical History History of shoulder surgery History of varicocele H/O hand surgery Hx of appendectomy H/O left knee surgery S/P left rotator cuff repair S/P arthroscopic surgery of right knee Family History Mother Arthritis Father Arthritis Social History Household Members: Spouse and Family Alcohol intake: current Alcohol intake frequency: does not drink Patient Tobacco Use Status: Former Tobacco user Current occupational status: disabled Current occupation: [employer] Review of Systems Const Details: Review of Systems Constitutional: Denies fever, chills, weight loss ENT: Denies vision changes, eye pain or eye redness, dental caries, dry mouth GI: Denies nausea, vomiting, diarrhea, abdominal pain, change in BM Pulm: Denies SOB, GRACIA, hemoptysis, wheezing Cards: Denies chest pain, palpitations Skin: Denies Raynaud's, rash, nail changes, photosensitivity, [employer]: Denies headaches, weakness, paresthesias, recurrent falls MSK: as per HPI All other systems reviewed and are unremarkable except noted above Physical Exam Vital Signs: Last Vital Signs Pulse 42 L 04/06/25 11:17 BP 140/80 H 04/06/25 11:17 Pulse Ox 98 04/06/25 11:17 Oxygen Delivery Method Room Air 04/06/25 11:17 BMI result Body Mass Index 32.9 Vital signs reviewed Physical Examination CONSTITUITIONAL Patient alert and cooperative. Well appearing and in no apparent painful distress HEENT Conjunctiva and sclera clear. ?Pupils equal round and reactive to light. ?No lymphadenopathy. ? CHEST/RESPIRATORY SYSTEM Normal respiratory effort and able to speak in complete sentences. ?Clear to auscultation bilaterally. ?No crackles, rales, rhonchi, wheezes heard. CARDIAC SYSTEM Regular rate and rhythm. ?S1 and S2 heard no murmurs. ?Radial pulses intact bilaterally MSK Hands: ?Able to make a fist. No synovitis noted to the MCPs, PIPs or DIPs. ?No tenderness to palpation of these joints. No deformities noted. ? Wrists: ?Full range of motion at the wrists without pain. ?No tenderness to palpation or synovitis noted to the wrists. De quervain's tenosynovitis Elbows: Full range of motion without pain. No tenderness, weakness, swelling, increased warmth or erythema. Shoulders: Full range of active range of motion without pain. No tenderness, weakness, swelling, increased warmth or erythema. Hips: Full range of motion without pain. Hip bursa: No tenderness to palpation Knees: ?Full range of motion. ?No tenderness, swelling, increased warmth or erythema.?No effusion Ankles: Full range of motion. ?No tenderness, swelling, increased warmth or erythema.? Feet: ?Negative squeeze test. ?No tenderness to palpation or swelling of the MTPs. Tender points:?No tenderness to palpation of the bilateral trapezius, supraspinatus, greater trochanters, anterior costochondral junctions, bilateral gluteal areas, bilateral suboccipital muscle insertions SKIN Skin intact without rashes. 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 Currently on Enbrel, leflunomide and etodolac. Currently in remission on this regimen. Plan - Enbrel 50mg SC weekly - Leflunomide 20mg 3 times a week - Etodolac 300mg daily - RTC 4 months - Labs before visit: CBC, CMP, ESR, CRP (2) Degenerative lumbar disc: Code(s): M51.36 - Other intervertebral disc degeneration, lumbar region Category: Medical Qualifiers: Disc-related pain type: unspecified whether pain present Qualified Code(s): M51.369 - Other intervertebral disc degeneration, lumbar region without mention of lumbar back pain or lower extremity pain Plan: #Lumbar degenerative disc disease Patient followed up with pain management who recommended steroid injections however patient will require transportation after the procedure because he is not allowed to drive or not recommended should drive after the procedure. Does not have any want to give him a ride. We will write a prescription for transportation form to help him with this. (3) De Quervain's disease (radial styloid tenosynovitis): Code(s): M65.4 - Radial styloid tenosynovitis [de Quervain] Plan: #Right De Quervain's tenosynovitis Recommending splinting Consider injection in the future (4) Encounter for monitoring of etanercept therapy: Code(s): Z51.81 - Encounter for therapeutic drug level monitoring; Z79.620 - skilled nursing (current) use of immunosuppressive biologic Plan: #Long-term Use of TNF Inhibitors: Etanercept Discussed with the patient the benefits and risks of TNF inhibitors for the man agement of the rheumatic condition Benefits include reduce pain, maintenance of remission and reduction of flares as well as ?progression of the disease Risks include injection sites/infusion reactions, serious infections (such as bacterial infections, opportunistic infections), malignancy, delaminating syndromes, autoimmune phenomena, CHF exacerbations, palmar plantar psoriasis and cytopenias Recommended rotating injection sites, and holding medication during and for up to 1 week after resolution of a febrile illness or open skin wound (5) Encounter for monitoring leflunomide therapy: Code(s): Z51.81 - Encounter for therapeutic drug level monitoring; Z79.69 - skilled nursing (current) use of other immunomodulators and immunosuppressants Plan: #Long-term leflunomide Discussed with patient the benefits and risks of leflunomide for managing the rheumatic condition Benefits include: - Reduced pain, maintenance of remission and reduction of flares Risks include: - GI upset especially diarrhea, skin rash, cytopenias, hepatotoxicity, weight loss, neuropathy Leflunomide is highly teratogenic. ?Has a very long half-life. 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 Medications: Refilled Enbrel SureClick (etanercept) 50 mg subcut QWEEK 4 mL 4RF NS M47.819 - Spondylosis without myelopathy or radiculopathy, site unspecified leflunomide 20 mg PO 3XW 36 tabs 1RF M47.819 - Spondylosis without myelopathy or radiculopathy, site unspecified baclofen 10 mg PO QID PRN 120 tabs 2RF for muscle spasm etodolac 300 mg PO DAILY 90 caps 1RF Coding Level of Care Code Est Pt Level 4 (41036) Complex EM visit Add On G2211 Diagnoses 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
[2025-04-06 11:17] VITALS: BP 140/80; PULSE 42; O2SAT 98; BMI 32.9
--- OUTSIDE RECORDS SUMMARY | 2025-04-06 12:18 | XMS_ITS | Data Portability ---
Author Organization ALEXANDRA - Reese Lunbderg Vales[facility] Address [address] [place] [address] Assessment Encounter Date Assessment Date Assessment LastModified by Organization Details LastModified Time 05/19/2024 05/19/2024 X-rays 4 views previously obtained and personally reviewed today AP internal/external, scapular Y, axillary views left shoulder demonstrate: Chronic changes consistent with rotator cuff tear arthropathy with cranial migration of the humerus with anterior superior escape and remodeling of the acromion. Multiple metallic surgical anchors are seen. Impression: Left shoulder rotator cuff tear arthropathy Plan: Reviewed the above diagnosis with the patient today. We discussed nonoperative options including activity modification, HEP, PT, steroid injections, or surgery. Patient reports progressively worsening shoulder pain with limited range of motion and weakness. Reports he did well after latissimus dorsi tendon transfer initially with several month history of worsening symptoms. Proposed surgical intervention discussed today: Left reverse total shoulder arthroplasty We reviewed the proposed procedure, reasonable expectations, anticipated rehabilitation timeline, and restrictions. Risks, benefits, and alternatives of the procedure were discussed at length with the patient. Risks discussed included but were not limited to bleeding, infection, damage to neurovascular structures, pain after surgery, incomplete or temporary symptom relief, inability to return to previous level of activity, shoulder stiffness, implant loosening, periprosthetic infection, periprosthetic fracture, dislocation, osteolysis, potential need for additional operations, medical and anesthesia related complications, and thromboembolic events. Patient had a chance to have all questions answered and wishes to move forward with surgery. We are going to order a CT scan left shoulder with blueprint protocol and start the scheduling process. He will follow-up for H&P visit 1 month prior to surgery. Patient takes Enbrel and follows up with rheumatology. We will need to consult with rheumatology regarding perioperative recommendations for management of DMARD medication Patient will benefit from an ultrasound guided preooperative nerve block for post operative pain control. It will limit the anesthetic needs during surgery and will aid in discharge from the PACU in a timely fashion. Anesthesia will be consulted for the procedure. [email or web address] Not available 05/19/2024 12:33:17 Plan of Treatment Reminders Order Date Submit Date Provider Last Modified By Organization Details Last Modified Time Details Appointments RECHECK 15 2024 10:00A Jennifer Stewart MD Not available Not available Not available Lab None recorded. Referral None recorded. Procedures None recorded. Surgeries None recorded. Imaging XR, shoulder, 2 or more view 2023 024 [email or web address] [facility], [address] [facility] [address], [facility] [address], [place], [address], 07/09/2024 11:29:49 CT, shoulder, w/o contrast - left shoulder CT with blueprint protocol for surg planning 2023 024 [email or web address] [facility], [address], [address], [place], [address], 05/19/2024 11:58:38 Medication Orders None recorded. Patient TargetsNo targets recorded. Patient InstructionsNo instructions recorded. Reason for Referral None Reported. Results Created Date Observation Date Name Description Value Unit Range Abnormal Flag Note LastModifiedBy Organization Detail LastModifiedTime 07/09/20 24 07/09/2024 XR, shoul deep, 2 or more view http:/ [email or web address] ?Encry pted=s hAaTro YD8dLq bEUv6g %2BXZw aYqtaq 0bqfl% 2Fg9IQ a4ajBk vP9nXo QUaueC m3YtLR FvZlgJ JJ8mAn HZtai3 6j1165 AC0Kra HmGUqL eUC8mr 84%3D INTERFACE [facility] [address], [place], [address], 07/09/2024 10:38:30 07/09/20 24 07/09/2024 XR, shoul deep, 2 or more view http:/ [email or web address] ?Encry pted=s hAaTro YD8dLq bEUv6g %2BXZw aYqtaq 0bqfl% 2Fg9IQ a4ajBk vP9nXo QUaueC m3YtLR FvZlgJ JJ8mAn HZtai3 4m0596 AC0Kra HmGUqL eUC8mr 84%3D INTERFACE [facility] [address], [place], [address], 07/09/2024 10:38:32 Result Notes None recorded. Procedures Surgical History Date Name Laterality Status Provider Name and Address Organization Details Recorded Time 03/17/20 24 Sports Shoulder completed Han Stewart MD [address] [address], [place], [address], [facility] 03/17/2024 12:51:55 [facility] 03/17/2024 10:50:29 [facility] 03/17/2024 10:50:37 varicose vein operation [facility] 03/17/2024 10:50:50 Shoulder joint surgery [facility] 03/17/2024 10:50:57 Imaging Results Imaging Date Name Status LastModified by Organiz ation Details LastModified Time 07/09/2024 XR, shoulder, 2 or more view completed [facility]FACE [facility] [address], [place], [address], 07/09/2024 10:38:30 07/09/2024 XR, shoulder, 2 or more view completed INTERFACE [facility] [address], [place], [address], 07/09/2024 10:38:32 Procedure Notes None recorded. Medical Equipment None Reported. Allergies Allergen ID Allergen Name Allergen Category Reaction Reaction Severity Criticality Documentation Date Start Date Code Code System Note Provider Name and Address Organization Details Recorded Time 887478 Lamictal medicatio n Not available Not available Not available 03/17/2024 30414 2 RxNorm VINEET PABLOANDREJENNIFER morin [facility] 10:49:33 Medications Name Sig Start Date Stop Date Status Note LastModified by Organization Details LastModified Time atorvastatin 40 mg tablet active Not Available Not Available Not Available etodolac 300 mg capsule active Not Available Not Available N ot Available citalopram 40 mg tablet active Not Available Not Available No t Available meloxicam 15 mg tablet Take 1 tablet every day by oral route. active Not Available Not Available No t Available ondansetron HCl 4 mg tablet Take 1 tablet twice a day by oral route as needed, for nausea/ vomitin g. 08/18 completed Not Available Not Available Not Available aspirin 81 mg tablet,delaye d release Take 1 tablet twice a day by oral route. 08/18 completed Not Available Not Available Not Available leflunomide 20 mg tablet active Not Available Not Available Not Available baclofen 10 mg tablet active Not Available Not Available No t Available pantoprazole 40 mg tablet,delaye d release active Not Available Not Available No t Available gabapentin 100 mg capsule active Not Available Not Available Not Available atenolol 50 mg tablet active Not Available Not Available No t Available oxycodone 5 mg tablet Take 1 tablet every 6 hours by oral route, for severe post op pain. 08/18 completed Not Available Not Available Not Available bupropion HCl SR 200 mg tablet,12 hr sustained-rel ease active Not Available Not Available Not Available quetiapine 50 mg tablet active Not Available Not Available No t Available Enbrel SureClick 50 mg/mL (1 mL) subcutaneous pen injector active Not Available Not Available Not Available cholecalcifer ol (vitamin D3) 50 mcg (2,000 unit) capsule active Not Available Not Available Not Available Vitals Date Recorded Body height Body mass index (BMI) Body weight Provider Name and Address Organization Details Last Updated DateTime 05/19/2024 177.8 cm 33.7 kg/m2 427840.21 g Ny salinas [facility] 05/19/2024 10:59:29 Date Recorded Body height Body mass index (BMI) Body weight Provider Name and Address Organization Details Last Updated DateTime 07/09/2024 177.8 cm 33.7 kg/m2 982460.21 g Ny fieldsadrileslie [facility] 07/09/2024 10:28:48 Date Recorded Body height Body mass index (BMI) Body weight Provider Name and Address Organization Details Last Updated DateTime 08/18/2024 177.8 cm 33.7 kg/m2 981211.21 ya fieldslisa [facility] 08/18/2024 10:22:08 Date Recorded Body height Body mass index (BMI) Body weight Provider Name and Address Organization Details Last Updated DateTime 10/27/2024 177.8 cm 33.7 kg/m2 553555.21 ya fieldslisa [facility] 10/27/2024 10:06:01 Date Recorded Body height Body mass index (BMI) Body weight Provider Name and Address Organization Details Last Updated DateTime 02/09/2025 177.8 cm 33.7 kg/m2 261527.21 ya fieldslisa [facility] 02/09/2025 10:15:47 Social History Question Answer Notes LastModified by Organizat ion Details LastModified Time Tobacco Smoking Status Former Smoker VINEET BRANDON [facility] 03/17/2024 10:50:05 When Did You Quit Smoking? 16+yearssinc elastcigaret te Information not available 03/17/2024 What Is Your Relationship Status? Information not available 05/19/2024 How Much Tobacco Do You Smoke? No Information not available 03/17/2024 How Many Years Have You Smoked Tobacco? 25 Information not available 05/19/2024 Sex: Unknown Functional Status Question Answer Note LastModified by Organizat ion Details LastModified Time Do you use any illicit or recreational drugs? No Information not available 03/17/2024 Do you or have you ever used any other forms of tobacco or nicotine? No Information not available 03/17/2024 What is your level of alcohol consumption? None Information not available 03/17/2024 Do you or have you ever used e-cigarettes or vape? Never used electronic cigarettes Information not available 05/19/2024 Mental Status None recorded. Family History Nothing Reported. Medical History Condition Response Allergies/Hayfever Y Coronary Artery Disease N Anxiety/Depression Y Emphysema N Thyroid Problems N COPD N Pacemaker N Anemia N Kidney/Bladder Problems N Vascular Disease N Gastrointestinal Disease N Heart Attack ([place]) N Diabetes N Autoimmune disease N Bleeding Disorder N Orthotics N Seizures/Epilepsy N Arthritis Y Blood Clot N AIDS/HIV N Congestive Heart Failure (CHF) N Acid Reflux (GERD) Y Cancer N Stroke N Asthma N Peripheral Vascular Disease N Sleep Apnea Y Hepatitis N Heart Disease N Rheumatoid Arthritis N Pulmonary Embolism N Arrhythmia N Fibromyalgia Y Hypertension Y Osteoporosis N Past Encounters Encounter ID Performer Location Encounter Start Date Encounter Closed Date Diagnosis/Indication Diagnosis SNOMED-CT Code Diagnosis ICD10 Code Diagnosis Note [id number] [facility] [address] [place] [address] 03/17/2024 10:30:17 04/05/2024 20:21:32 Pain of left shoulder joint 3178587925 8904176 M25.512 Full thick ness rotator cuff tear 230301189 M75.330 [id number] [facility] [address] [place] [address] 05/19/2024 10:49:45 06/16/2024 07:21:18 Pain of left shoulder joint 1437076322 6974058 M25.512 Full thick ness rotator cuff tear 158509752 M75.951 [id number] [facility] [address] [place] [address] 07/09/2024 10:21:10 08/04/2024 11:16:49 Postoperative visit 576319607 Z48.89 [id number] [facility] [address] [place] [address] 08/18/2024 10:14:58 09/07/2024 13:44:12 History of reverse prosthetic total arthroplasty of left shoulder 4149280009 6358917 Z96.950 [id number] [facility] [address] [place] [address] 10/27/2024 09:39:48 11/25/2024 05:55:19 Osteoarthritis of joint of left shoulder region 3816860181 57428 M19.260 [id number] Han Stewart MD [facility] [address] [place] [address] 02/09/2025 09:58:20 02/28/2025 08:56:35 History of left shoulder arthroplasty 2787623018 030277 Z96.612 Health Concerns Section Related Observation LastModified by Organization Detai ls LastModified Time None Recorded Concern Status LastModified by Organization Details LastModified Time None Recorded Advance Directives Directive None Recorded Payers Encounter Date Sequence Insurance Name Policy Number Policy Silva Covered Member ID Silva Member ID Guarantor Name 05/19/2024 2 [place] Miguel Mosley Archambo [id number] [facility] 05/19/2024 1 [place] Miguel Melany Archambo [id number] [facility] 07/09/2024 2 [place] Miguel Mosley Archambo [id number] [facility] 07/09/2024 1 [place] Miguel Melany Archambo [id number] Miguel Archambo 08/18/2024 2 [place] Miguel Melany Archambo [id number] [employer] 08/18/2024 1 [place] Miguel F Archambo [id number] Miguel Archambo 10/27/2024 2 [place] Miguel Melany Archambo [id number] Miguel Archambo 10/27/2024 1 [place] Miguel F Archambo [id number] Miguel Archambo 02/09/2025 2 [place] Miguel Melany Archambo [id number] [employer] Archambo 02/09/2025 1 [place] Miguel F Archambo [id number] [facility] Notes Date Note Type Note Provider Name and Address Organization Details Recorded Time text/html Chief complaint: Left shoulder painInterval history: Patient had corticosteroid injection last visit. He reports no improvement after the injections. Since last visit he reports even more pain and limited range of motion. To recap last visit March 17, 2024: Patient is a 59-year-old male who presents today with chief complaint of left shoulder pain. Patient status post left shoulder arthroscopic rotator cuff repair performed by Dr. King in 2015 and subsequent latissimus dorsi transfer performed by Dr. Keith in 2018. Patient reports he did very well after tendon transfer and started having recurrent pain over the last several months. No specific injury history or inciting episode. He complains of shoulder pain radiating to his arm. He denies any neck pain. He denies any paresthesias. Patient the is disabled secondary to chronic lower back pain. He has been taking gabapentin. He has not found NSAIDs to be helpful. He has not had any recent therapy or injections. Past family, medical, social history and review of systems has been reviewed, updated and is located in the patient's chart. Han Stewart MD [address], [place], [address], [facility] 05/19/2024 12:33:26 4 text/html Chief complaint: Postop visitHPI: Patient here today for postop visit status post left reverse total shoulder arthroplasty performed on July 01, 2024. Patient reports they are doing well. Pain has been well-controlled. He discontinued the opioid medication and has been using Tylenol as needed. Patient compliant with brace use and post op restrictions. Physical exam Patient appears comfortable, no distressShoulder deltopectoral incisions clean, dry, intact. There is some mild skin irritation from the Aquacel dressing along with some soft tissue swelling over the incision which is closed.Soft compressible compartments.Neurovascular ly intact distallyShoulder ROM testing: Pain-free passive forward elevation to 70 degreesPain free passive hand, elbow, wrist ROM Plan: Reviewed the procedure and intraoperative findings with the patient today. Post op restrictions and rehab plan discussed today.Patient instructed to remain in shoulder immobilizer unless for hygeine and home exercises. Continue with hand, elbow, wrist ROM, pendulums. Begin PT week 3, 2 times per week for reverse total shoulder post op protocol. PT protocol available in patient chart. Patient will follow up in 5 weeks. All questions answered today. Han Stewart MD [address], [place], [address], [facility] 07/09/2024 10:56:10 4 text/html Chief complaint: Postop visit Surgery: Left reverse total shoulder arthroplasty performed on July 01, 2024. Interval history: Patient has been attending physical therapy, focusing on soft tissue modalities and passive range of motion. He reports he has not had any pain.To recap last visit July 09, 2024:Patient reports they are doing well. Pain has been well-controlled. He discontinued the opioid medication and has been using Tylenol as needed. Patient compliant with brace use and post op restrictions. Physical exam Patient appears comfortable, no distress Deltopectoral surgical incision well-healed.Soft compressible compartments.Neurovascular ly intact distallyShoulder PROM testing: Pain-free passive forward elevation to, external rotation 60 degrees, internal rotation back pocket without pain. 140degrees Imaging x-rays 2 views left shoulder obtained at last visit demonstrate reverse shoulder arthroplasty which appears well-fixed Plan: patient doing well approximately 7 weeks out from surgery. Plan to progress to next phase active assisted and active shoulder range of motion exercises. No lifting heavier than a coffee cup. No pushing or pulling with the operative extremity. He will follow-up in 2 months. Han Stewart MD [address] [facility] [address], [place], [address], [facility] 08/18/2024 10:38:39 4 text/html Chief complaint: Postop visitSurgery: Left reverse total shoulder arthroplasty performed on July 01, 2024. Interval history: Patient here today for routine follow-up visit. He has been discharged from physical therapy. He has been doing home strengthening program. He reports he is doing well, did have some pain when he was helping another person with some moving, pain subsided with rest.to recap last visit August 18, 2024 y: Patient has been attending physical therapy, focusing on soft tissue modalities and passive range of motion. He reports he has not had any pain.To recap last visit July 09, 2024:Patient reports they are doing well. Pain has been well-controlled. He discontinued the opioid medication and has been using Tylenol as needed. Patient compliant with brace use and post op restrictions. Physical exam Patient appears comfortable, no distressDeltopectoral surgical incision well-healed.Soft compressible compartments.Neurovascular ly intact distallyShoulder active range of motion: Forward elevation 140 degrees, external rotation 60 degrees, internal rotation back pocket 5/5 strength forward elevation, external rotation, internal rotation Imaging x-rays 2 views left shoulder obtained at last visit demonstrate reverse shoulder arthroplasty which appears well-fixed Plan: Patient continues to do well approximately 4 months out from left reverse total shoulder arthroplasty. He is going to continue with home strengthening program. Should continue to use pain as his guide as he progresses activity. Would avoid any lifting over 10 pounds and use caution with overhead lifting and lifting away from his body. Plan for follow-up in 2 to 3 months. Han Stewart MD [address] [place] [address] [address], [place], [address], [facility] 10/27/2024 18:41:00 5 text/html Chief complaint: Postop visitSurgery: Left reverse total shoulder arthroplasty performed on July 01, 2024. Interval history: Patient here today for routine follow-up visit now approximate 7 months out from surgery. He reports he is doing excellent. He has not had any pain. Interval history: Patient here today for routine follow-up visit. He has been discharged from physical therapy. He has been doing home strengthening program. He reports he is doing well, did have some pain when he was helping another person with some moving, pain subsided with rest.to recap last visit August 18, 2024 y: Patient has been attending physical therapy, focusing on soft tissue modalities and passive range of motion. He reports he has not had any pain.To recap last visit July 09, 2024:Patient reports they are doing well. Pain has been well-controlled. He discontinued the opioid medication and has been using Tylenol as needed. Patient compliant with brace use and post op restrictions. Physical exam Patient appears comfortable, no distressDeltopectoral surgical incision well-healed.Soft compressible compartments.Neurovascular ly intact distallyShoulder active range of motion: Forward elevation 150 degrees, external rotation 60 degrees, internal rotation L5. Pain-free range of motion without crepitus.5/5 strength forward elevation, external rotation, internal rotation Imaging x-rays 2 views left shoulder obtained at last visit demonstrate reverse shoulder arthroplasty which appears well-fixed Plan: Patient doing very well approximately 7 months out from left reverse total shoulder arthroplasty. He will continue with home exercise program. No specific precautions at this point he should continue to use pain as his guide. He will follow-up for his 1 year visit in June with repeat x-rays left shoulder. Han Stewart MD [address] [place] [address] [address], [place], [address], [facility] 02/09/2025 12:41:34
== END 2025-04-06 11:52 | disposition home or self-care (01) ==
LOC: HO.RHE 11:01
PROVIDERS: PCP Nurse Practitioner Family; Visit Provider Student in an Organized Health Care Education/Training Program
DX: M45.A Non-radiographic axial spondyloarthritis (principal); M51.369 Other intervertebral disc degeneration, lumbar region without mention of lumbar back pain or lower extremity pain; M65.4 Radial styloid tenosynovitis [de Quervain]; Z51.81 Encounter for therapeutic drug level monitoring; Z79.620 Long term (current) use of immunosuppressive biologic; Z79.69 Long term (current) use of other immunomodulators and immunosuppressants
CPT/HCPCS: 99214; G2211

== ENCOUNTER → 2025-04-06 11:00 | Outpatient (BNVA) | payer MEDICARE, MEDICAID, SELFPAY | PROVIDERS: PCP Nurse Practitioner Family; Visit Provider Student in an Organized Health Care Education/Training Program | DX: M45.A Non-radiographic axial spondyloarthritis (principal); M51.369 Other intervertebral disc degeneration, lumbar region without mention of lumbar back pain or lower extremity pain; M65.4 Radial styloid tenosynovitis [de Quervain]; Z51.81 Encounter for therapeutic drug level monitoring; Z79.620 Long term (current) use of immunosuppressive biologic; Z79.69 Long term (current) use of other immunomodulators and immunosuppressants | CPT/HCPCS: 99212 ==

== ENCOUNTER 2025-06-02 08:37 | Outpatient (AMB) | payer MEDICARE, MEDICAID, SELFPAY ==
--- OUTSIDE RECORDS SUMMARY | 2025-06-02 08:43 | XMS_ITS | Data Portability ---
Author Organization [facility] Reese Lundberg [facility], [facility] Address [address] [place] [address] Assessment Encounter Date Assessment Date Assessment LastModified [...] Anesthesia will be consulted for the procedure. [email or web address] Not available 05/19/2024 12:33:17 Plan of Treatment Reminders Order Date Submit Date Provider Last Modified By Organization Details Last Modified Time Details Appointments RECHECK 15 2024 10:00A Jennifer Stewart MD Not available Not available Not available Lab None recorded. Referral None recorded. Procedures None recorded. Surgeries None recorded. Imaging XR, shoulder, 2 or more view 2023 024 [facility], [address], [facility] [address], [place], [address], 07/09/2024 11:29:49 CT, shoulder, w/o contrast - left shoulder CT with blueprint protocol for surg planning 2023 024 [email or web address] [facility], [address], [address], [place], [address], 05/19/2024 11:58:38 Medication Orders None recorded. Patient TargetsNo targets recorded. Patient InstructionsNo instructions recorded. Reason for Referral None Reported. Results Created Date Observation Date Name Description Value Unit Range Abnormal Flag Note LastModifiedBy Organization Detail LastModifiedTime 07/09/2007/09/2024 XR, jerman adame, 2 or more view http:/ [email or web address] ?Encry pted=s hAaTro YD8dLq bEUv6g %2BXZw aYqtaq 0bqfl% 2Fg9IQ a4ajBk vP9nXo QUaueC m3YtLR FvZlgJ JJ8mAn HZtai3 0i7228 AC0Kra HmGUqL eUC8mr 84%3D INTERFACE [facility] [address], [place], [address], 07/09/2024 10:38:30 07/09/20 24 07/09/2024 XR, shoul depe, 2 or more view http:/ [email or web address] ?Encry pted=s hAaTro YD8dLq bEUv6g %2BXZw aYqtaq 0bqfl% 2Fg9IQ a4ajBk vP9nXo QUaueC m3YtLR FvZlgJ JJ8mAn HZtai3 3h0789 AC0Kra HmGUqL eUC8mr 84%3D INTERFACE [facility] [address], [place], [address], 07/09/2024 10:38:32 Result Notes Documentation Provider Name and Address Organization Details Recorded Time Xr, Shoulder, 2 Or More View : [email or web address] Encrypted=kbGlVwiBQ7yYmxW Uv6g%1PNOetGhbhp9wyhr%2Fg 4WKq9gkRjhV1oZaXQmcyJk2Vo FWUqSqvCMX4pLtAEvgf72c958 8RS5QpsHhRRlBiWV7hi31%3D Not Available [facility] 07/09/2024 10:3 8:30 Xr, Shoulder, 2 Or More View : [email or web address] Encrypted=dfAzHmiYK5vLosR Uv6g%2ILRhoKcihm0gfjo%2Fg 4RAa1htTmyH1yTnOMzabDm1Ft TPTbMkxLXA7uMeHLqcw27t176 9QP1FmmNdBLaAmDX6gi26%3D Not Available [facility] 07/09/2024 10:3 8:33 Procedures Surgical History Date Name Laterality Status Provider Name and Address Organization Details Recorded Time 03/17/20 24 Sports Shoulder completed Han Stewart MD [address], [place], [address], [facility] 03/17/2024 12:51:55 Knee Surgery completed VINEET TAYLOR [facility] 03/17/2024 10:50:29 Appendectomy completed VINEET TAYLOR [facility] 03/17/2024 10:50:37 varicose vein operation completed VINEET TAYLOR [facility] 03/17/2024 10:50:50 Shoulder joint surgery completed VINEET TAYLOR [facility] 03/17/2024 10:50:57 Imaging Results None recorded. Procedure Notes None recorded. Medical Equipment None Reported. Allergies Allergen ID Allergen Name Allergen Category Reaction Reaction Severity Criticality Documentation Date Start Date Code Code System Note Provider Name and Address Organization Details Recorded Time 334938 Lamictal medicatio n Not available Not available Not available 03/17/2024 2 RxNorm VINEET Covarrubias patience [facility] 10:49:33 Medications Name Sig Start Date Stop [...] Updated DateTime 02/09/2025 177.8 cm 33.7 kg/m2 476705.21 ya fieldslisa [facility] 02/09/2025 10:15:47 Date Recorded Body height Body mass index (BMI) Body weight Provider Name and Address Organization Details Last Updated DateTime 05/19/2024 177.8 cm 33.7 kg/m2 553947.21 ya fieldslisa [facility] 05/19/2024 10:59:29 Date Recorded Body height Body mass index (BMI) Body weight Provider Name and Address Organization Details Last Updated DateTime 07/09/2024 177.8 cm 33.7 kg/m2 463067.21 ya fieldslisa [facility] 07/09/2024 10:28:48 Date Recorded Body height Body mass index (BMI) Body weight Provider Name and Address Organization Details Last Updated DateTime 08/18/2024 177.8 cm 33.7 kg/m2 049084.21 ya fieldslisa [facility] 08/18/2024 10:22:08 Date Recorded Body height Body mass index (BMI) Body weight Provider Name and Address Organization Details Last Updated DateTime 10/27/2024 177.8 cm 33.7 kg/m2 510354.21 ya fieldslisa [facility] 10/27/2024 10:06:01 Social History Question Answer Notes LastModified by Organizat ion Details LastModified Time Tobacco Smoking Status Former Smoker VINEET TAYLOR [facility] 03/17/2024 10:50:05 When Did You Quit Smoking? [...] N Kidney/Bladder Problems N Vascular Disease N Heart Attack (MT) N Gastrointestinal Disease N Diabetes N Autoimmune disease N Bleeding Disorder N Orthotics N Arthritis Y Seizures/Epilepsy N Blood Clot N AIDS/HIV N Congestive Heart Failure (CHF) N Acid Reflux (GERD) Y Cancer N Stroke N Asthma N Peripheral Vascular Disease N Sleep Apnea Y Hepatitis N Heart Disease N Rheumatoid Arthritis N Arrhythmia N Pulmonary Embolism N Fibromyalgia Y Hypertension Y Osteoporosis N Past Encounters Encounter ID Performer Location Encounter Start Date Encounter Closed Date Diagnosis/Indication Diagnosis SNOMED-CT Code Diagnosis ICD10 Code Diagnosis Note [id number] [facility] [address] [place] [address] 03/17/2024 10:30:17 04/05/2024 20:21:32 Pain of left shoulder joint 8515339053 1436775 M25.512 Full thick ness rotator cuff tear 863781716 M75.733 [id number] MD Marly Fleming [address] [place] [address] 05/19/2024 10:49:45 06/16/2024 07:21:18 Pain of left shoulder joint 9798016649 3925039 M25.512 Full thick ness rotator cuff tear 237427309 M75.926 [id number] [facility] [address] [place] [address] 07/09/2024 10:21:10 08/04/2024 11:16:49 Postoperative visit 282627913 Z48.89 [id number] Han Stewart MD [facility] [address] [place] [address] 08/18/2024 10:14:58 09/07/2024 13:44:12 History of reverse prosthetic total arthroplasty of left shoulder 2401791712 0788010 Z96.809 [id number] Han Stewart MD [facility] [address] [place] [address] 10/27/2024 09:39:48 11/25/2024 05:55:19 Osteoarthritis of joint of left shoulder region 8001308818 67561 M19.850 [id number] Han Stewart MD [facility] [address] [place] [address] 02/09/2025 09:58:20 02/28/2025 08:56:35 History of left shoulder arthroplasty 3206745910 044480 Z96.612 Health Concerns Section Related Observation LastModified by Organization Detai ls LastModified Time None Recorded Concern Status LastModified by Organization Details LastModified Time None Recorded Advance Directives Directive None Recorded Payers Insurance Date Sequence Insurance Name Policy Number Policy Silva Covered Member ID Silva Member ID Guarantor Name 02/28/2025 2 [place]: [facility] [id number] [facility] 02/08/2025 1 [place]ICARE [place]: [id number] [facility] [id number] [facility] Notes Date Note Type Note Provider Name and Address Organization Details Recorded Time 4 text/html Chief complaint: Left shoulder painInterval history: [...] the patient's chart. Han Stewart MD [address], [place], [address], [facility] 05/19/2024 12:33:26 4 text/html Chief complaint: Postop [...] questions answered today. Han Stewart MD [address], [place], [address], [facility] 07/09/2024 10:56:10 4 text/html Chief complaint: Postop [...] follow-up in 2 months. Han Stewart MD [address] [place] [address] [address], [place], [address], [facility] 08/18/2024 10:38:39 4 text/html Chief complaint: Postop [...] 2 to 3 months. Han Stewart MD [address] [facility] [address] [address], [place], [address], [facility] 10/27/2024 18:41:00 text/html Chief complaint: Postop visitSurgery: Left reverse [...] repeat x-rays left shoulder. Han Stewart MD [address], [place], [address], [facility] 02/09/2025 12:41:34
[2025-06-02 09:03] VITALS: BP 128/74; PULSE 50; RESP 16; O2SAT 96; BMI 31.6
--- NOTE | 2025-06-02 09:03 | MHC.OFFVIS ---
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 He has a longstanding history of lumbar spinal stenosis, degenerative disc disease, and osteoarthritis of the spine, which have progressively worsened over the years. Approximately 30 years ago, he was diagnosed with degenerative arthritis in his spine, and the condition has gradually deteriorated, leading to significant pain and mobility issues. In March, the patient experienced a severe flare-up of back pain, prompting a visit to the emergency room where he was administered Dilaudid for pain relief, although it was ineffective. He was subsequently prescribed morphine tablets, which he currently takes twice daily to manage his pain. The patient reports that standing or walking for extended periods exacerbates his pain, and he often experiences fatigue and limping on the left side. Sitting provides some relief, but he continues to have difficulty with mobility and requires frequent position changes to manage discomfort. Imaging studies, including an MRI, have revealed lumbar spinal stenosis, bone spurs, and a bulging disc, particularly affecting the L2-L3 region, which is nearly [id number]-tepw. The patient has been advised to begin physical therapy, but due to scheduling constraints, it is not set to start until July. Patient reports the pain is so bad that he is afraid to start physical therapy, he does not want end of pack in the emergency room. Patient recently evaluated by Dr. Kim, neurosurgeon, advised to consider injections and physical therapy and follow up if pain worsens. No surgery warranted at this time. - Onset: Severe flare-up in March, requiring emergency room visit - Quality: Persistent, severe pain - Location: Lower back, particularly L2-L3 region - Radiation: Pain extends to the left hip - Exacerbating factors: Standing or walking for extended periods - Relieving factors: Sitting provides some relief - Interference: Affects mobility, requires frequent position changes - Affect: Pain significantly impacts mobility and daily activities - Analgesia: Currently taking morphine twice daily for pain management - Adverse Effects: No specific adverse effects from morphine reported - Activities of Daily Living: Pain limits standing and walking, necessitates frequent position changes - Aberrant Drug Related Behaviors: No aberrant behaviors reported [facility] Medical History Sleep apnea Primary fibromyalgia syndrome Low back pain Carpal tunnel syndrome Major depression, melancholic type Anemia Surgical History History of shoulder surgery History of varicocele H/O hand surgery Hx of appendectomy H/O left knee surgery S/P left rotator cuff repair S/P arthroscopic surgery of right knee Family History Mother Arthritis Father Arthritis Social History Household Members: Spouse and Family Alcohol intake: current Alcohol intake frequency: does not drink Patient Tobacco Use Status: Former Tobacco user Current occupational status: disabled Current occupation: [employer] Review of Systems Const Details: - Musculoskeletal: Reports severe lower back pain, left hip pain, and altered gait - Neurological: Denies leg pain or numbness Physical Exam Vital Signs: Last Vital Signs Pulse 50 06/02/25 09:03 Resp 16 06/02/25 09:03 BP 128/74 06/02/25 09:03 Pulse Ox 96 06/02/25 09:03 Oxygen Delivery Method Room Air 06/02/25 09:03 BMI result Body Mass Index 31.6 General: awake, alert, oriented. Answers questions appropriately. Fully engaged in examination. Skin: warm, dry, intact HEENT: Normocephalic. Hearing intact. Cardiac: External chest normal in appearance. Respiratory: No cough, audible wheezing or stridor. Abdomen: without gross distension. MS: No obvious swelling or deformities. Able to transition from sit to stand unassisted. BLE strength 5/5 SLR with and without dorsiflexion negative bilaterally Facet loading positive bilaterally Tender to palpation over midline lumbar vertebrae and lumbar paraspinal muscles Nontender over bilateral PSIS Neurological: Oriented to person, place, time and situation. Thought process intact. No gait abnormalities appreciated. Psychiatric: Appropriate mood and affect. Good judgment and insight. Results Reviewed Results Reviewed: 02/21/2023 XR Lumbar Spine, XR sacroiliac joints FINDINGS: Lumbar spine: There is normal lumbar segmentation with 5 lumbar vertebrae there is normal lumbar lordosis. Levocurvature mid lumbar spine is present. There is no destructive process, ankylosis, or erosive changes. There are degenerative disc changes greatest at L2-L3 with vacuum disc, endplate sclerosis, and osteophytes. There are also degenerative disc changes at L1-L2 and L3-L4. There is no definite spondylolysis. No spondylolisthesis. Sacroiliac joints: The sacrum shows no fracture or destructive process. There is no SI joint ankylosis or subchondral sclerosis. There are mild SI joint degenerative changes. Pubis unremarkable. There are surgical clips right lower quadrant abdomen. IMPRESSION: -Levocurvature lumbar spine with degenerative disc changes, greatest at L2-L3. -Mild degenerative changes SI joints. -No ankylosis SI joints or lumbar spine. Assessment & Plan Assessment & Plan (1) Seronegative spondyloarthropathy: Comment: +HLA b27 dx 2004 SSZ & MTX unknown whether failed or couldn't be tolerated on leflunomide since 2006 Code(s): M47.819 - Spondylosis without myelopathy or radiculopathy, site unspecified Category: Medical (2) Lumbar facet arthropathy: Code(s): M47.816 - Spondylosis without myelopathy or radiculopathy, lumbar region Category: Medical (3) Degenerative lumbar disc: Code(s): M51.36 - Other intervertebral disc degeneration, lumbar region Category: Medical Qualifiers: Disc-related pain type: unspecified whether pain present Qualified Code(s): M51.369 - Other intervertebral disc degeneration, lumbar region without mention of lumbar back pain or lower extremity pain (4) Chronic pain syndrome: Code(s): G89.4 - Chronic pain syndrome Category: Medical Plan The primary focus is to address the severe lower back pain and associated symptoms through targeted interventions. The plan includes obtaining the MRI results to determine the exact nature of the spinal issues, particularly at the L2-L3 level, which appears to be the most affected area. Based on the MRI findings, a steroid injection at the L2-L3 level is planned to reduce inflammation and alleviate pain, allowing for improved participation in physical therapy. Physical therapy is scheduled to begin in July, with the aim of enhancing mobility and reducing pain through structured exercises. The patient is advised to continue taking morphine as prescribed for pain management, with a focus on minimizing usage as the condition improves. Coordination with the primary care physician and Dr. Kim is essential for ongoing management and medication adjustments as needed. Patient was informed and verbally consented to the use of an ambient scribe for clinic note documentation during this visit. Patient Instructions: - Obtain MRI results and send them to the clinic for review. - Plan for a steroid injection once MRI results are reviewed. - Arrange for transportation home after the injection due to potential leg weakness. - Begin physical therapy in July as scheduled. - Continue taking morphine as prescribed and coordinate with Dr. Kim and primary care physician for any medication adjustments. Coding Level of Care Code Est Pt Level 3 (23856) Complex EM visit Add On G2211 Diagnoses Seronegative spondyloarthropathy M47.819 Lumbar facet arthropathy M47.816 Degeneration of intervertebral disc of lumbar region, unspecified whether pain present M51.369 Disc-related pain type: unspecified whether pain present Chronic pain syndrome G89.4
== END 2025-06-02 09:31 | disposition home or self-care (01) ==
LOC: HO.PMC 08:37
PROVIDERS: PCP Nurse Practitioner Family; Visit Provider Registered Nurse Emergency
DX: M47.819 Spondylosis without myelopathy or radiculopathy, site unspecified (principal); M47.816 Spondylosis without myelopathy or radiculopathy, lumbar region; M51.369 Other intervertebral disc degeneration, lumbar region without mention of lumbar back pain or lower extremity pain; G89.4 Chronic pain syndrome
CPT/HCPCS: 99213; G2211

== ENCOUNTER → 2025-06-02 08:37 | Outpatient (BNVA) | payer MEDICARE, MEDICAID, SELFPAY | PROVIDERS: PCP Nurse Practitioner Family; Visit Provider Registered Nurse Emergency | DX: M47.816 Spondylosis without myelopathy or radiculopathy, lumbar region (principal); M47.819 Spondylosis without myelopathy or radiculopathy, site unspecified; M51.369 Other intervertebral disc degeneration, lumbar region without mention of lumbar back pain or lower extremity pain; G89.4 Chronic pain syndrome | CPT/HCPCS: 99212 ==

== ENCOUNTER 2025-08-10 10:29 | Outpatient (REF) | payer MEDICARE, MEDICAID, SELFPAY ==
[2025-08-10 18:41] LABS: MANUAL DIFF FLAG NO
[2025-08-10 18:42] LABS: Hematocrit 40.7 % (42.0-52.0); Hemoglobin 13.3 g/dl (14.0-18.0); Imm Gran Abs Auto 0.10 X10*3/uL (0.00-0.03); Imm Gran Pct Auto 1.1 % (0.0-0.4); Lymphocytes Absolute Auto 3.5 X10*3/uL (1.2-4.9); Mean Corpuscular HGB Conc 32.7 g/dl (31.0-36.0); Mean Corpuscular Hemoglobin 30.3 pg (27.0-33.0); Mean Corpuscular Volume 92.7 fL (80.0-98.0); NRBC Abs Auto 0.000 X10*3/uL (0.0-0.012); NRBC Pct Auto 0.0 /100WBC (0.0-0.2); Platelet Count 280 X10*3/uL (160-400); Red Blood Count 4.39 X10*6/uL (4.60-5.80); White Blood Count 9.3 X10*3/uL (4.8-10.8)
[2025-08-10 19:02] LABS: Alanine Aminotransferase 27 U/L (0-40); Albumin Level 3.8 g/dL (3.5-5.0); Alkaline Phosphatase 76 U/L (39-117); Anion Gap 10 (12-20); Aspartate Amino Transferase 21 U/L (5-37); Blood Urea Nitrogen 16 mg/dL (9-16); Calcium 8.6 mg/dL (8.4-10.2); Carbon Dioxide 29 mmol/L (22-29); Chloride 104 mmol/L (96-108); Estimated Glomerular Filt Rate > 60; Potassium 4.2 mmol/L (3.3-5.1); Sodium 139 mmol/L (135-145); Total Protein 6.2 g/dL (6.5-8.0)
[2025-08-11 08:43] LABS: HBS Num1 186.30 mIU/mL (0-7.99); HBc Num1 0.09 S/CO (0.00-0.79); HBsAGNum1 0.55 S/CO (0.00-0.99); Hepatitis B Surface Antigen Negative (Negative); ~HepC Num1 0.08 S/CO (0.00-0.79); ~Hepatitis B Surface Antibody REACTIVE (Nonreactive); ~Hepatitis C Antibody Nonreactive (Nonreactive)
== END 2025-08-10 10:30 | disposition home or self-care (01) ==
LOC: HO.HKASLDS 10:29
PROVIDERS: PCP Nurse Practitioner Family; Visit Provider Student in an Organized Health Care Education/Training Program
DX: M45.A Non-radiographic axial spondyloarthritis (principal); M51.369 Other intervertebral disc degeneration, lumbar region without mention of lumbar back pain or lower extremity pain; M65.4 Radial styloid tenosynovitis [de Quervain]; M47.819 Spondylosis without myelopathy or radiculopathy, site unspecified; Z51.81 Encounter for therapeutic drug level monitoring; Z79.620 Long term (current) use of immunosuppressive biologic; Z79.69 Long term (current) use of other immunomodulators and immunosuppressants; Z11.59 Encounter for screening for other viral diseases; Z72.89 Other problems related to lifestyle
CPT/HCPCS: 36415; 80053; 85025; 85652; 86140; 86481; 86704; 86706; 86803; 87340; 99212

== ENCOUNTER 2025-08-10 10:29 | Outpatient (AMB) | payer MEDICARE, MEDICAID, SELFPAY ==
--- NOTE | 2025-08-10 10:55 | A.OFFVIS_ITS ---
Vital Signs 08/10/25 11:02 Height 5 ft 9 in Weight 222 lb 7.143 oz BMI 32.8 BP 122/70 Blood Pressure Location Lt brachial Position Sitting Pulse 64 Pulse Source Pulse Oximeter Pulse Oximetry (%) 96 Oxygen Delivery Method Room Air Intake Visit Reasons: Follow up non radiographic axial spondyloarthritis Intake Note: Patient presents for follow up. Allergies lamotrigine (From Lamictal) Adverse Reaction (Unknown, Verified 08/10/25 11:01) Rash Medication List - Last Reconciled 08/10/25 by Sharla Mendoza MD atenolol 50 mg PO DAILY atorvastatin 40 mg PO DAILY baclofen 10 mg PO QID PRN bupropion HCl SR 200 mg PO BID cholecalciferol (vitamin D3) (D3-2000) 50 mcg PO DAILY citalopram 40 mg PO DAILY Enbrel SureClick (etanercept) 50 mg subcut QWEEK NS etodolac 300 mg PO DAILY gabapentin 600 mg PO TID gabapentin 300 mg PO BID leflunomide 20 mg PO 3XW oxycodone 5 mg PO BID PRN pantoprazole 40 mg PO DAILY quetiapine 50 mg PO BEDTIME HPI Comments Details: Patient is a 60-year-old male with hypertension, hyperlipidemia, depression, degenerative lumbar disc disease and seronegative spondyloarthropathy here today for follow up Interval History: Patient last seen 04/06/2025 with me - On Enbrel 50mg SC every week, Leflunomide 20mg x 3 days a week, Etodolac 300mg daily, Baclofen 10mg tid prn - Continues to complain of back pain - Saw pain management and they want to do steroid injections but he does not have any one to give him a ride after the appointment - Also complaining of right lateral wrist pain. Evaluated as de quervain's tenosynovitis. Splinting recommended Today, - On Enbrel 50mg SC every week, Leflunomide 20mg x 3 days a week, Etodolac 300mg daily, Baclofen 10mg tid prn - Has not had any back interventions, new plan is for surgery on L3-L4. 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 States that he has remained stable on leflunomide 20 mg daily 3 days a week. He has also been taking etodolac 600 mg daily XR for many years and has remained relatively stable on this regimen. States that 6 weeks ago his insurance denied Etodolac in his back pain has been worse. States that his back pain is worse with any activity. Occasionally back pain would wake him up. He does not have significant morning stiffness. Denies any peripheral joint complaints. No history suggestive of uveitis. Never had a colonoscopy but denies any bowel complaints or blood in the stool. No known family history of autoimmune rheumatic disease Per Dr. Gutierrez's notes: Clinical diagnosis of spondyloarthropathy was made he years ago around 2004 on the basis of sacroiliac pain, inflammatory symptoms, NSAID response.? No radiog raphic sacroiliitis. In the remote past he was tried on sulfasalazine and methotrexate.? He ended up on leflunomide and has remained on this medication since at least 2006.? He has tried a couple of times to stop but there was a substantial flare in the symptoms.? He is also on etodolac Current Rheumatology Medication(s): Enbrel 50mg SC every week Leflunomide 20mg x 3 days a week Etodolac 300mg daily Baclofen 10mg tid prn PFSH Medical History Sleep apnea Primary fibromyalgia syndrome Low back pain Carpal tunnel syndrome Major depression, melancholic type Anemia Surgical History History of shoulder surgery History of varicocele H/O hand surgery Hx of appendectomy H/O left knee surgery S/P left rotator cuff repair S/P arthroscopic surgery of right knee Family History Mother Arthritis Father Arthritis Social History Household Members: Spouse and Family Alcohol intake: current Alcohol intake frequency: does not drink Patient Tobacco Use Status: Former Tobacco user Current occupational status: disabled 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[employer] Review of Systems Const Details: Review of Systems Constitutional: Denies fever, chills, weight loss ENT: Denies vision changes, eye pain or eye redness, dental caries, dry mouth GI: Denies nausea, vomiting, diarrhea, abdominal pain, change in BM Pulm: Denies SOB, GRACIA, hemoptysis, wheezing Cards: Denies chest pain, palpitations Skin: Denies Raynaud's, rash, nail changes, photosensitivity, H[employer] OFFBEARER: Denies headaches, weakness, paresthesias, recurrent falls MSK: as per HPI All other systems reviewed and are unremarkable except noted above Physical Exam Exam Exam: Vital signs reviewed Physical Examination CONSTITUITIONAL Patient alert and cooperative. Well appearing and in no apparent painful distress MSK Hands * Right Hand: Able to make a fist. No swelling or tenderness to palpation of the MCPs, PIPs or DIPs. * Left Hand: Able to make a fist. No swelling or tenderness to palpation of the MCPs, PIPs or DIPs. * Herbedens nodes noted bilaterally Wrists * Right Wrist: Full ROM to flexion and extension. No swelling or TTP * Left Wrist: Full ROM to flexion and extension. No swelling or TTP Elbows * Right Elbow: Full ROM. No swelling or TTP. No TTP of the medial epicondyle. No TTP of the lateral epicondyle * Left Elbow: Full ROM. No swelling or TTP. No TTP of the medial epicondyle. No TTP of the lateral epicondyle Shoulders * Right shoulder: Full ROM. No swelling noted. No TTP of the AC joint. No TTP of the subacromial bursa. No TTP of the posterior shoulder * Left shoulder: Full ROM. No swelling noted. No TTP of the AC joint. No TTP of the subacromial bursa. No TTP of the posterior shoulder Knees * Right knee: Full ROM. No swelling noted. No TTP of the knee joint line. No TTP of pes anserine bursa * Left knee: Full ROM. No swelling noted. No TTP of the knee joint line. No TTP of pes anserine bursa. * Crepitations felt bilaterally Ankles * Right ankle: Good ankle dorsiflexion and plantar flexion. No swelling. No TTP of the ankle joint * Left ankle: Good ankle dorsiflexion and plantar flexion. No swelling. No TTP of the ankle joint Feet * Right foot: Negative squeeze test * Left foot: Negative squeeze test Tender points? * No tenderness to palpation of the bilateral trapezius, supraspinatus, anterior costochondral junctions, bilateral suboccipital muscle insertions SKIN No rashes Vital Signs: Last Vital Signs Pulse 64 08/10/25 11:02 BP 122/70 08/10/25 11:02 Pulse Ox 96 08/10/25 11:02 Oxygen Delivery Method Room Air 08/10/25 11:02 BMI result Body Mass Index 32.8 Results Reviewed Results Reviewed: Laboratory Tests 03/30/25 09:27 WBC 5.2 RBC 4.47 L Hgb 14.0 Hct 40.3 L Plt Count 221 ESR 2 Sodium 140 Potassium 4.0 Chloride 106 Carbon Dioxide 26 BUN 15 Creatinine 0.90 AST 19 ALT 19 Alkaline Phosphatase 66 C-Reactive Protein < 0.10 Infectious serologies 03/30/25 09:27 Hepatitis A IgM Ab Nonreactive Hep Bs Antigen Negative Hep Bs Antibody REACTIVE Hep B Core Total Ab Nonreactive Hepatitis C Ab (EIA) Nonreactive TB Test (T-Spot) Com Negative Assessment & Plan Assessment & Plan (1) 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 Currently on Enbrel, leflunomide and etodolac. Currently in remission on this regimen. His current pain is from degenerative disease for which he is follow up with spine surgery and pain management Plan - Enbrel 50mg SC weekly - Leflunomide 20mg 3 times a week - Etodolac 300mg daily - Labs today: CBC, CMP, ESR, CRP, Hepatitis panel and T spot - RTC 6 months - Labs before visit: CBC, CMP, ESR, CRP (2) Degenerative lumbar disc: Code(s): M51.36 - Other intervertebral disc degeneration, lumbar region Category: Medical Qualifiers: Disc-related pain type: unspecified whether pain present Qualified Code(s): M51.369 - Other intervertebral disc degeneration, lumbar region without mention of lumbar back pain or lower extremity pain Plan: #Lumbar degenerative disc disease Currently being evaluated for surgery on L3-L4 (3) De Quervain's disease (radial styloid tenosynovitis): Code(s): M65.4 - Radial styloid tenosynovitis [de Quervain] Plan: #Right De Quervain's tenosynovitis Improved (4) Encounter for monitoring of etanercept therapy: Code(s): Z51.81 - Encounter for therapeutic drug level monitoring; 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 Plan: #Long-term Use of TNF Inhibitors: Etanercept Discussed with the patient the benefits and risks of TNF inhibitors for the management of the rheumatic condition Benefits include reduce pain, maintenance of remission and reduction of flares as well as ?progression of the disease Risks include injection sites/infusion reactions, serious infections (such as bacterial infections, opportunistic infections), malignancy, delaminating syndromes, autoimmune phenomena, CHF exacerbations, palmar plantar psoriasis and cytopenias Recommended rotating injection sites, and holding medication during and for up to 1 week after resolution of a febrile illness or open skin wound (5) Encounter for monitoring leflunomide therapy: Code(s): Z51.81 - Encounter for therapeutic drug level monitoring; Z79.69 - 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 ?Has a very long half-life. ?Needs cholestyramine washout if there is desire for Initiation: ?CBC, BMP, LFTs, hepatitis-B and C serologies every 2-4 weeks for 3 months Monitoring: ?CBC, BMP, LFTs, hepatitis B and C serologies Plan I spent 30 minutes reviewing the record and labs, taking a history, examining the patient, discussing the treatment plan, ordering diagnostic work up and documenting in the medical record Orders: Orders Comprehensive Met. Panel Today Z79.899 - Other fdc (current) drug therapy C Reactive Protein Today Z79.899 - Other vermin exterminator (current) drug therapy Erythrocyte Sedimentation Rate Today Z79. - Other vermin exterminator (current) drug therapy T Spot TB Today Z79. - Other vermin exterminator (current) drug therapy Complete Blood Count Auto Diff 6 Months Z. - Other vermin exterminator (current) drug therapy C Reactive Protein 6 Months Z79.899 - Other fdc (current) drug therapy Complete Blood Count Auto Diff Today Z. - Other fdc (current) drug therapy Hepatitis B,C Profile Today Z. - Other vermin exterminator (current) drug therapy Comprehensive Met. Panel 6 Months Z. - Other fdc (current) drug therapy Erythrocyte Sedimentation Rate 6 Months Z79. 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
[2025-08-10 11:02] VITALS: BP 122/70; PULSE 64; O2SAT 96; BMI 32.8
--- OUTSIDE RECORDS SUMMARY | 2025-08-10 12:48 | XMS_ITS | Encounter Summary ---
Author Organization [facility] Address [address] [facility] [address] [place] [address] Phone Care Team Providers Care Oceanology Teacher Name Role Phone Rich Chun MD Primary Care Provider [phone] Marilu Santos NP Primary Care Provider Encounter Details Date Type Department Care Team (Late st Contact Info) Description 11/27/2017 Ancillary Orders [address] [address] Nehemiah King DO [address] [place] [address] Orthopedics & Sports Medicine, [place] [address] [email or web address] Shoulder pain, unspecified chronicity, unspecified laterality Social History Tobacco Use Types Packs/Day Years Used Date Smoking Tobacco: Former Smokeless Tobacco: Never Alcohol Use Standard Drinks/Week Comments Yes 0 (1 standard drink = 0.6 oz pur e alcohol) Sex and Gender Information Value Date Recorded Sex Assigned at Not on file Legal Sex Male 9:40 PM EDT Gender Identity Not on file Sexual Orientation Not on file documented as of this encounter Plan of Treatment Not on file documented as of this encounter Results * XR SHOULDER 2 VIEWS (LEFT) (11/27/2017 2:19 PM EST) Narrative Zunilda Kelly - 11/27/2017 2:20 PM EST This image report has been auto-finalized and has not been read by a Radiologist. Interpretation has been included in the provider encounter note for this date of service. us Nehemiah M Miller DO IMG XR UPPER EXTREMITY Starla l Result documented in this encounter Visit Diagnoses Diagnosis Shoulder pain, unspecified chronicity, unspecified laterality Shoulder pain, unspecified chronicity, unspecified laterality documented in this encounter Care Teams Oceanology Teacher Relationship Specialty Start Date End Date Rich Chun MD [address] [place] [address] PCP - General 09/02/17 03/01/24 Marilu Santos NP [address] [place] [address] PCP - General Nurse Practitioner 03/02/24 documented as of this encounter Additional Source Comments The information contained in this document represents components of the legal health record. It is not the complete legal health record.[facility]
--- OUTSIDE RECORDS SUMMARY | 2025-08-10 12:48 | XMS_ITS | Encounter Summary ---
Author Organization [facility] Address [address] [facility] [address] [place] [address] Phone Care Team Providers Care Odd Bundle Worker Name Role Phone Rich Chun MD Primary Care Provider [phone] Marilu Santos NP Primary Care Provider Reason for Referral * Physical Therapy (Routine) - Closed Specialty Diagnoses / Procedures Referred By Radha nelson Referred To Contact Physical Therapy Diagnoses Encounter for rehabilitation Phil Keith MD Phone: tel: fax: [email or web address] [address] [address] Phone: tel: Referral ID Status Reason Start Date Expiration Date Visits Re quested Visits Authorized [id number] Closed 02/17/2018 02/17/2019 1 1 Encounter Details Date Type Department Care Team (Latest Contact Info) Description 02/17/2018 Transcribe Orders [facility] [address] [place] [address] Phil Keith MD [address] [place] [phone] [email or web address] Encounter for rehabilitation (Primary Dx) Social History Tobacco Use Types Packs/Day Years [...] as of this encounter Plan of Treatment Scheduled Referrals Name Type Priority Associated Diagnoses Orde r Schedule Ambulatory referral to [facility] Physical Therapy Outpatient Referral Routine Encounter for rehabilitation Ordered: 02/17/2018 documented as of this encounter Visit Diagnoses Diagnosis Encounter for rehabilitation- Primary documented in this encounter Care Teams Odd Bundle Worker Relationship Specialty Start Date End Date Rich Chun MD [address] [place] [phone] PCP - General 09/02/17 03/01/24 Marilu Santos NP [address] [place] [address] PCP - General Nurse Practitioner 03/02/24 documented as of this encounter Additional Source Comments The information contained in this document represents components of the legal health record. It is not the complete legal health record.[facility]
--- OUTSIDE RECORDS SUMMARY | 2025-08-10 12:48 | XMS_ITS | Encounter Summary ---
Author Organization [facility] Address [address] [facility] [address] [place] [address] Phone Care Team Providers Care Associate Financial Representative Name Role Phone Rich Chun MD Primary Care Provider [phone] Marilu Santos NP Primary Care Provider Encounter Details Date Type Department Care Team (Latest Contact Info) Description 05/28/2018 Transcribe Orders Virtual Department [address] [place] [address] Phil Keith MD [address] [place] [id number] [email or web address] Pre-op examination (Primary Dx) Social History Tobacco Use Types [...] documented as of this encounter Results * ECG 12-LEAD (05/28/2018 10:48 AM EDT) Ventricular Rate EKG/MIN 56 BPM [facility] Atrial Rate 56 BPM [facility] AL Interval 148 ms [facility] QRS Duration 86 ms [facility] QT Interval 450 ms [facility] QTC Interval 434 ms [facility] P [place] -15 degrees [facility] R Wave [place] -4 degrees [facility] T Wave [place] 41 degrees [facility] 05/28/2018 10:4 8 AM EDT 05/28/2018 11:26 AM EDT Narrative [facility] - 05/28/2018 11:26 AM EDT Sinus bradycardia Otherwise normal ECG No previous ECGs available Confirmed by DENISA LEE MD ([id number]) on 05/28/2018 11:26:01 AM Phil Keith MD ECG ORDERABLES Final Result [facility] documented in this encounter Visit Diagnoses Diagnosis Pre-op examination Pre-op examination- Primary documented in this encounter Care Teams Associate Financial Representative Relationship Specialty Start Date End Date Rich Chun MD [address] [place] [phone] PCP - General 09/02/17 03/01/24 Marilu Santos NP [address] [place] [phone] PCP - General Nurse Practitioner 03/02/24 documented as of this encounter Additional Source Comments The information contained in this document represents components of the legal health record. It is not the complete legal health record.[facility]
--- OUTSIDE RECORDS SUMMARY | 2025-08-10 12:48 | XMS_ITS | Encounter Summary ---
Author Organization [facility] Address [address] [facility] [address] [place] [address] Phone Care Team Providers Care Centrifugal Extractor Operator Name Role Phone Rich Chun MD Primary Care Provider [phone] Marilu Santos NP Primary Care Provider Encounter Details Date Type Department Care Team (Late st Contact Info) Description 06/03/2018 Prep for Surgery [facility] Department of Orthopaedic Surgery, Hand & Upper Extremity Service [address] [facility], [address], [address] [place] [address] Zarina Matute PA [address] [facility] [address] [place] [address] Social History Tobacco Use Types Packs/Day Years Used Date Smoking Tobacco: Former Smokeless Tobacco: Never Alcohol Use Standard Drinks/Week Comments No 0 (1 standard drink = 0.6 oz pur e alcohol) Sex and Gender Information Value Date Recorded Sex Assigned at Not on file Legal Sex Male 9:40 PM EDT Gender Identity Not on file Sexual Orientation Not on file documented as of this encounter H&P Notes * Zarina Matute PA - 06/03/2018 12:01 PM EDT HPI: Pt is a 53 year old male, RHD, whom is disabled due to his back whom is here for a 3 month follow up for left shoulder pain s/p left shoulder arthroscopy rotator cuff repair involving the supraspinatus, subscapularis and infraspinatus, biceps tenodesis, labral debridement, and subacromial decom pression 03/03/[address] King. He has had continued pain and clicking in his left shoulder andMRI showing disruption of the supraspinatus tendon ?? Pt was last seen 02/12/2018 when we referred him to PT. He states he went to PT 2 times a week for about 2 months. He states he has minimal improvement. He states he continues to have a lot of pain inhis shoulder. He states it wakes him up at night. Denies numbness and tingling. He is taking ibuprofen as needed for pain. Social History: Social History Social History ??? Marital status: /Civil Union Spouse name: N/A ??? Number of children: N/A ??? Years of education: N/A Occupational History ??? Not on file. Social History Main Topics ??? Smoking status: Former Smoker ??? Smokeless tobacco: Never Used ??? Alcohol use No ??? Drug use: No ??? Sexual activity: Not on file Other Topics Concern ??? Not on file Social History Narrative Family History: Family History Problem Relation Age of Onset ??? No Known Problems Mother ??? No Known Problems Father ??? No Known Problems Sister ??? No Known Problems Brother ??? No Known Problems Maternal Aunt ??? No Known Problems Maternal Uncle ??? No Known Problems Paternal Aunt ??? No Known Problems Paternal Uncle ??? No Known Problems Maternal Grandmother ??? No Known Problems Maternal Grandfather ??? No Known Problems Paternal Grandmother ??? No Known Problems Paternal Grandfather ??? Infl. arthritis Unspecified ??? Diabetes Unspecified ??? Cancer Unspecified ??? Clotting disorder Neg Hx ??? Collagen disease Neg Hx ??? Depression Neg Hx ??? Dislocations Neg Hx ??? Gout Neg Hx ??? Osteoporosis Neg Hx ??? Scoliosis Neg Hx PAST MEDICAL HISTORY: Your Diagnosis Also Included: Diagnosis ??? Tear of left rotator cuff PAST SURGICAL HISTORY: Past Surgical History: Procedure Laterality Date ??? UNCODED SURGICAL HISTORY 1983 LEFT KNEE ??? UNCODED SURGICAL HISTORY 1985 RIGHT KNEE ??? UNCODED SURGICAL HISTORY 2007 APPENDECTOMY ??? UNCODED SURGICAL HISTORY 03/03/2015 LEFT SHOULDER ARTHROSCOPY RTC REPAIR ARTHROSCOPIC BICEPS TENODESIS, DR. KING MEDICATIONS: Outpatient Prescriptions as of 06/03/2018 Medication ??? atenolol (TENORMIN) 50 mg tablet ??? atorvastatin (LIPITOR) 40 MG tablet ??? baclofen (LIORESAL) 10 MG tablet ??? buPROPion (WELLBUTRIN SR) 200 MG SR 12 hr tablet ??? cholecalciferol (VITAMIN D3) 2,000 unit tablet ??? citalopram (CELEXA) 40 MG tablet ??? etodolac (LODINE XL) 600 MG 24 hr tablet ??? leflunomide (ARAVA) 20 MG tablet ??? pantoprazole (PROTONIX) 40 MG tablet ??? QUEtiapine (SEROQUEL) 50 MG tablet ??? rOPINIRole (REQUIP) 0.5 MG tablet No current facility-administered medications on file as of 06/03/2018. ALLERGIES: Allergies Allergen Reactions ??? Lamictal [Lamotrigine] Rash REVIEW OF SYSTEMS: CONSTITUTIONAL: No weight loss, fever, chills, weakness or fatigue. HEENT: Eyes: No visual loss, blurred vision, double vision or yellow sclerae. Ears, Nose, Throat: No hearing loss, sneezing, congestion, runny nose or sore throat. SKIN: No rash or itching. CARDIOVASCULAR: No chest pain, chest pressure or chest discomfort. No palpitations or edema. RESPIRATORY: No shortness of breath, cough or sputum. GASTROINTESTINAL: No anorexia, nausea, vomiting or diarrhea. No abdominal pain or blood. GENITOURINARY: Burning on urination. . Last menstrual period, MM/DD/YYYY. NEUROLOGICAL: No headache, dizziness, syncope, paralysis, ataxia, numbness or tingling in the extremities. No change in bowel or bladder control. MUSCULOSKELETAL: See HPI. HEMATOLOGIC: No anemia, bleeding or bruising. LYMPHATICS: No enlarged nodes. No history of splenectomy. PSYCHIATRIC: No history of depression or anxiety. ENDOCRINOLOGIC: No reports of sweating, cold or heat intolerance. No polyuria or polydipsia. ALLERGIES: No history of asthma, hives, eczema or rhinitis. Physical Exam: In general, well-appearing male in no acute distress. Alert and oriented, normal mood and affect. Non-labored breathing. Cervical spine motion is within normal limits. Negative spurling's. General Adult Exam GENERAL APPEARANCE: Well developed, well nourished, alert and cooperative, and appears to be in no acute distress. HEAD: normocephalic. EARS: hearing grossly intact. NOSE: No nasal discharge. NECK: Neck supple, non-tender without lymphadenopathy, masses or thyromegaly. CARDIAC: Normal S1 and S2. No S3, S4 or murmurs. Rhythm is regular. There is no peripheral edema, cyanosis or pallor. Extremities are warm and well perfused. Capillary refill is less than 2 seconds. No carotid bruits. LUNGS: Clear to auscultation and percussion without rales, rhonchi, wheezing or diminished breath sounds. SKIN: Skin normal color, texture and turgor with no lesions or eruptions. Left??Upper Extremity: Skin intact, no edema, erythema, ecchymosis Forearm compartments soft???and compressible Fires EPL, FPL, EDC, FDP, PRUDENCIO SILT???in axillary, radial, median, ulnar nerve distributions 2+ radial pulse, WWP distally Active forward flexion: 160 External rotation: 80 Internal rotation: sacrum positive empty can test + Belly press test ? STUDIES: Left shoulder MRI 12/23/2017 IMPRESSION: Limited study as above with apparent disruption of the supraspinatous tendon and with anterior labral tearing. ??There is somewhat limited evaluation due to metallic artifact and patient motion and if the current findings do not fit with the clinical scenario CT arthrography could be considered. ?? Assessment: 53 year old male, RHD, whom is disabled due to his back whom is here for a 3 month follow up for left shoulder pain s/p left shoulder arthroscopy rotator cuff repair involving the supraspinatus, subscapularis and infraspinatus, biceps tenodesis, labral debridement, and subacromial decompression 03/03/[address] King. He has had continued pain and clicking in his left shoulder and MRI showing disruption of the supraspinatus tendon. Pt did about 2 months of PT with minimal improvement, and continued pain in his shoulder. Plan: Left shoulder latissimus transfer vs. Trapezius transfer documented in this encounter Plan of Treatment Not on file documented as of this encounter Visit Diagnoses Not on filedocumented in this encounter Care Teams Centrifugal Extractor Operator Relationship Specialty Start Date End Date Rich Chun MD [address] [place] [address] PCP - General 09/02/17 03/01/24 Marilu Santos NP [address] [place] [address] PCP - General Nurse Practitioner 03/02/24 documented as of this encounter Additional Source Comments The information contained in this document represents components of the legal health record. It is not the complete legal health record.[facility]
--- OUTSIDE RECORDS SUMMARY | 2025-08-10 12:48 | XMS_ITS | Encounter Summary ---
Author Organization [facility] Address [address] [facility] [address] [place] [address] Phone Care Team Providers Care Sex Offender Treatment Professional Name Role Phone Rich Chun MD Primary Care Provider [phone] Marilu Santos NP Primary Care Provider Encounter Details Date Type Department Care Team (Late st Contact Info) Description 11/27/2017 Procedure Pass [facility], [address] [address] Social History Tobacco Use Types Packs/Day Years [...] on filedocumented in this encounter Care Teams Sex Offender Treatment Professional Relationship Specialty Start Date End Date Rich Chun MD [address] [place] [address] PCP - General 09/02/17 03/01/24 Marilu Santos NP [address] [place] [address] PCP - General Nurse Practitioner 03/02/24 documented as of this encounter Additional Source Comments The information contained in this document represents components of the legal health record. It is not the complete legal health record.[facility]
--- OUTSIDE RECORDS SUMMARY | 2025-08-10 12:48 | XMS_ITS | Clinical Summary ---
Author Organization [facility] Address [address] [address] Phone Care Team Providers Care Mill Tender Warm Up Name Role Phone Marilu Santos NP Primary Care Provider Allergies Active Allergy Reactions Criticality Noted Date Comments Lamotrigine Rash Low 11/27/2017 Medications atenolol (TENORMIN) 50 mg tablet 10/14/2017 Active baclofen (LIORESAL) 10 MG tablet 11/04/2017 Active buPROPion (WELLBUTRIN SR) 200 MG SR 12 hr tablet 10/07/2017 Active citalopram (CELEXA) 40 MG tablet 10/07/2017 Active etodolac (LODINE XL) 600 MG 24 hr tablet 11/25/2017 Act hemal leflunomide (ARAVA) 20 MG tablet 11/25/2017 Active pantoprazole (PROTONIX) 40 MG tablet 1 tablet Active rOPINIRole (REQUIP) 0.5 MG tablet 1 tablet 1 to 3 hours before bedtime Active QUEtiapine (SEROQUEL) 50 MG tablet 10/07/2017 Active cholecalciferol (VITAMIN D3) 2,000 unit tablet Active atorvastatin (LIPITOR) 40 MG tablet Take 20 mg by mouth daily. Active acetaminophen (TYLENOL) 325 mg tablet Take 2 tablets (650 mg total) by mouth 5 (five) times a day. 0 06/07/2018 Active oxyCODONE 5 MG immediate release tablet Take 1-2 tablets (5-10 mg total) by mouth every 4 (four) hours as needed for moderate pain. Pt. may request partial fill 35 tablet 06/07/2018 Active Active Problems Problem Noted Date Diagnosed Date Shoulder pain, left 06/06/2018 Tear of left rotator cuff Family History Medical History Relation Comments No Known Problems Brother No Known Problems Father No Known Problems Maternal Aunt No Known Problems Maternal Grandfather No Known Problems Maternal Grandmother No Known Problems Maternal Uncle No Known Problems Mother No Known Problems Paternal Aunt No Known Problems Paternal Grandfather No Known Problems Paternal Grandmother No Known Problems Paternal Uncle No Known Problems Sister Cancer Unspecified Diabetes Unspecified Infl. arthritis Unspecified Clotting disorder Neg Hx Collagen disease Neg Hx Depression Neg Hx Dislocations Neg Hx Gout Neg Hx Osteoporosis Neg Hx Scoliosis Neg Hx Relation Status Comments Brother Father Maternal Aunt Maternal Grandfather Maternal Grandmother Maternal Uncle Mother Paternal Aunt Paternal Grandfather Paternal Grandmother Paternal Uncle Sister Unspecified Social History Tobacco Use Types Packs/Day Years Used Date Smoking Tobacco: Former Smokeless Tobacco: Never Alcohol Use Standard Drinks/Week Comments No 0 (1 standard drink = 0.6 oz pur e alcohol) Education Answer Date Recorded Are you interested in more education? Not on angy e 03/15/2023 Are you concerned about learning? Not on file 03/15/2023 No 03/15/2023 No 03/15/2023 Digital Access Answer Date Recorded No 04/15/2023 No 04/15/2023 Reliable internet access at home? Not on file 04/15/2023 Device with a working camera? Not on file Sex and Gender Information Value Date Recorded Sex Assigned at Not on file Legal Sex Male 9:40 PM EDT Gender Identity Not on file Sexual Orientation Not on file Last Filed Vital Signs Vital Sign Reading Time Taken Comments Blood Pressure 121/75 06/07/2018 7:57 AM EDT Pulse 62 06/07/2018 7:57 AM EDT Temperature 37.4 C (99.4 F) 06/07/2018 7:57 AM EDT Respiratory Rate 20 06/07/2018 12:00 AM EDT Oxygen Saturation 95% 06/07/2018 7:57 AM EDT Inhaled Oxygen Concentration - - Weight 95.3 kg (210 lb 1.6 oz) 12/30/2017 10:45 AM EST Height 177.8 cm (5' 10 ) 12/30/2017 10:45 AM EST Body Mass Index 30.15 12/30/2017 10:45 AM EST Plan of Treatment Health Maintenance Due Date Last Done Comments Adult Td,Tdap Booster 1966 LIPID PANEL 1966 DEPRESSION SCREENING 1978 SMOKING Hx and SMOKELESS TOBACCO SCREENING 1979 HEPATITIS C SCREENING 1984 HIV ONE-TIME SCREENING (18-6 5 YEARS) 1984 PNEUMOCOCCAL VACCINES (50+ years) (1 of 2 - PCV) 1985 ZOSTER VACCINES (1 of 2) 1985 COLOGUARD 2011 COLONOSCOPY 2011 COLORECTAL CANCER SCREENING 2011 FIT TEST 2011 FOBT 2011 SIGMOIDOSCOPY 2011 VIRTUAL COLONOSCOPY 2011 COVID-19 VACCINE (3 - Pfizer risk series) 02/07/2021 01/10/2021, 12/19/2020 INFLUENZA VACCINE (#1) 2025 HEPATITIS A VACCINES Aged Out No long er eligible based on patient's age to complete this topic HIB VACCINES Aged Out No longer eligi ble based on patient's age to complete this topic MENINGOCOCCAL VACCINES (ACWY) Aged Out No longer eligible based on patient's age to complete this topic MENINGOCOCCAL VACCINES (B) Aged Out N o longer eligible based on patient's age to complete this topic Medical Devices Implanted Type Area Auto Porter Device Identifier Shelf Expiration Date Model / Serial / Lot [place] Suture 2 5.5x16mm Arthroscopy Corkscrew Fiberwire Lf Full Thread Ii Titanium Absorbable Sterile Disposable Bx/5ea - [id number] Implanted:Qty: 3 on 06/06/2018 by Phil Keith MD at [facility] STANDARD Left: Shoulder ARTHREX 01/15/2028 [id number] -[id number] / / [id number] Lefr Shoulder Plate And Screw [place] Suture 4.75x24.5mm Arthroscopy Biocomposite Vented Closed Eyelet Swivelock Lf Sterile - [id number] Implanted:Qty: 1 on 06/06/2018 by Phil Keith MD at [facility] Left: Shoulder ARTHREX 02/16/2020 [id number] / / [id number] Insurance [facility] MEDICARE HMO BLUE REPLACEMENT Member Subscriber Plan / Payer (Ef fective 1999-Present) Name:Miguel An Relation to Subscriber:Self Name:Miguel An Payer ID:[id number] (NAIC) Type:Medicare [address] B [facility] MEDICARE HMO BLUE RE[place]ACEMENT [place] MED[place] PART A & B [facility] MEDICARE HMO BLUE REPLACEMENT [facility] MEDICARE HMO BLUE REPLACEMENT [facility] MEDICARE O BLUE REPL[place] [address] [address] [place] [address] MEDICARE PART A & [place] [id number] [facility] MEDICARE O BLUE REPLACEMENT [facility] MEDICARE O BLUE REPLACEMENT Member Subscriber Plan / Payer (Ef fective 1999-Present) Name:Miguel An Relation to Subscriber:Self Name:Miguel An Payer ID:[id number] (NAIC) Type:Medicare Address: [address] MEDICARE PART A & B [facility] MEDICARE O BLUE REPLACEMENT [facility] MEDICARE PART A & B [place] MEDICARE HMO BLUE REPLACEMENT [facility] MEDICARE PART A & B Advance Directives For more information, please contact: [phone] (9AM - 5PM [facility], Saturday-Saturday) * Full Code (Presumed) (Latest Code Status on File) Date Activated Date Inactivated Comments 06/06/2018 11:48 AM 06/07/2018 3:41 PM Care Teams Mill Tender Warm Up Relationship Specialty Start Date End Date Marilu Santos NP [address] [place] [address] PCP - General Nurse Practitioner 03/02/24 Additional Source Comments The information contained in this document represents components of the legal health record. It is not the complete legal health record.[facility]
--- OUTSIDE RECORDS SUMMARY | 2025-08-10 12:48 | XMS_ITS | Encounter Summary ---
Author Organization [facility] Address [address] [facility] [address] [place] [address] Phone Care Team Providers Care Grease Maker Name Role Phone Rich Chun MD Primary Care Provider [phone] Marilu Santos NP Primary Care Provider Encounter Details Date Type Department Care Team (Late st Contact Info) Description 06/06/2018 Procedure Pass [facility] [address] [place] [id number] Social History Tobacco Use Types Packs/Day Years [...] on filedocumented in this encounter Care Teams Grease Maker Relationship Specialty Start Date End Date Rich Chun MD [address] [place] [address] PCP - General 09/02/17 03/01/24 Marilu Santos NP [address] [place] [address] PCP - General Nurse Practitioner 03/02/24 documented as of this encounter Additional Source Comments The information contained in this document represents components of the legal health record. It is not the complete legal health record.[facility]
--- OUTSIDE RECORDS SUMMARY | 2025-08-10 12:48 | XMS_ITS | Encounter Summary ---
Author Organization [facility] Address [address] [facility] [address] [place] [address] Phone Care Team Providers Care Forensic Structural Engineer Name Role Phone Rich Chun MD Primary Care Provider [phone] Marilu Santos NP Primary Care Provider Encounter Details Date Type Department Care Team (Late st Contact Info) Description 11/27/2017 [facility] [address] [place] [address] Nehemiah King DO [address] [place] [address] Orthopedics & Sports Medicine, [facility] [place] [address] [email or web address] Social History Tobacco Use Types Packs/Day Years [...] on filedocumented in this encounter Care Teams Forensic Structural Engineer Relationship Specialty Start Date End Date Rich Chun MD [address] [place] [address] PCP - General 09/02/17 03/01/24 Marilu Santos NP [address] [place] [address] PCP - General Nurse Practitioner 03/02/24 documented as of this encounter Additional Source Comments The information contained in this document represents components of the legal health record. It is not the complete legal health record.[facility]
== END 2025-08-10 11:43 | disposition home or self-care (01) ==
LOC: HO.RHES 10:30
PROVIDERS: PCP Nurse Practitioner Family; Visit Provider Student in an Organized Health Care Education/Training Program
DX: M45.A Non-radiographic axial spondyloarthritis (principal); M51.369 Other intervertebral disc degeneration, lumbar region without mention of lumbar back pain or lower extremity pain; M65.4 Radial styloid tenosynovitis [de Quervain]; Z51.81 Encounter for therapeutic drug level monitoring; Z79.620 Long term (current) use of immunosuppressive biologic; Z79.69 Long term (current) use of other immunomodulators and immunosuppressants
CPT/HCPCS: 99214; G2211